=== PATIENT | female | born 1980 | race Caucasian/White ===

== ENCOUNTER 2020-04-05 07:52 | Outpatient (REF) | payer OTHER, SELFPAY ==
[2020-04-05 10:06] LABS: MANUAL DIFF FLAG NO
[2020-04-05 10:07] LABS: Basophils Percent Auto 0.4 % (0-2); Eosinophils Absolute Auto 0.2 X10*3/uL (0.0-0.4); Hematocrit 40.1 % (37-47); Hemoglobin 13.3 g/dl (12.0-16.0); Imm Gran Abs Auto 0.01 X10*3/uL (0.00-0.03); Imm Gran Pct Auto 0.2 % (0.0-0.4); Mean Corpuscular HGB Conc 33.2 g/dl (31.0-35.0); Mean Corpuscular Hemoglobin 31.8 pg (27.0-33.0); Mean Corpuscular Volume 95.9 fL (80-98); Mean Platelet Volume 11.4 fL (9.4-12.3); Monocytes Absolute Auto 0.4 X10*3/uL (0.1-1.2); Monocytes Percent Auto 7.4 % (2-11); Neutrophils Absolute Auto 2.4 X10*3/uL (2.0-8.3); Platelet Count 203 X10*3/uL (160-400); Red Blood Count 4.18 X10*6/uL (4.20-5.50); Red Cell Distribution Width 11.5 % (11.0-16.0)
[2020-04-05 11:03] LABS: Alanine Aminotransferase 14 U/L (0-31); Albumin Level 4.4 g/dL (3.5-5.0); Alkaline Phosphatase 67 U/L (39-117); Anion Gap 11 (12-20); Aspartate Amino Transferase 22 U/L (5-31); Bilirubin Total 0.4 mg/dL (0.0-1.0); Blood Urea Nitrogen 18 mg/dL (9-16); Calcium 8.8 mg/dL (8.4-10.2); Carbon Dioxide 27 mmol/L (22-29); Chloride 107 mmol/L (96-108); Estimated Glomerular Filt Rate > 60; Glucose Fasting 90 mg/dL (60-99); Potassium 4.2 mmol/l (3.3-5.1); Sodium 141 mmol/L (135-145); Total Protein 7.3 g/dL (6.5-8.0)
[2020-04-05 11:05] LABS: Thyroid Stimulating Hormone 2.53 uIU/mL (0.32-4.0)
[2020-04-05 11:36] LABS: Rheumatoid Factor < 15.0 IU/mL (<15.0)
[2020-04-05 11:41] LABS: Erythrocyte Sedimentation Rate 10 MM/HR (0-20)
[2020-04-06 08:33] LABS: Lyme Abs Screen <0.90 index
[2020-04-10 09:22] LABS: Anti Nuclear Antibody Screen POSITIVE
== END 2020-04-05 07:53 | disposition home or self-care (01) ==
LOC: HO.10HDL 07:52
PROVIDERS: PCP Nurse Practitioner Family; Visit Provider Nurse Practitioner Family
DX: M25.549 Pain in joints of unspecified hand (principal); Z00.00 Encounter for general adult medical examination without abnormal findings
CPT/HCPCS: 36415; 80053; 84443; 85025; 85652; 86038; 86039; 86431; 86618

== ENCOUNTER 2023-10-24 10:18 | Outpatient (AMB) | payer OTHER, SELFPAY ==
--- NOTE | 2023-10-24 11:35 | AM.OFFWIN_ITS ---
Intake Vital Signs 3 10/24/23 11:37 Height 5 ft 5 in Weight 161 lb 2 oz BMI 26.8 BP 106/84 Blood Pressure Location Lt brachial Position Sitting Respiration 12 Pulse 65 Pulse Source Pulse Oximeter Temp 98.4 F Temp Source Oral Pulse Oximetry (%) 99 Oxygen Delivery Method Room Air Intake Visit Reasons: abdominal pain Intake Note: Abdominal pain Patient Tobacco Use Status: Never used Tobacco Is last menstrual period known: No (On IUD) Patient : No Allergies butorphanol [From Stadol] Allergy (Mild, Verified 10/24/23 11:59) Nausea and Vomiting animal dander Allergy (Unknown, Verified 10/24/23 11:59) SWOLLEN EYES morphine [MORPHINE] Allergy (Unknown, Verified 10/24/23 11:59) NAUSEA & VOMITING, nausea and vomiting lactose [LACTOSE] Adverse Reaction (Intermediate, Verified 10/24/23 11:59) DIARRHEA Medication List - Last Reconciled 10/24/23 by Jessica Iraheta, [facility]- escitalopram oxalate 20 mg PO DAILY levothyroxine 25 mcg PO DAILY omeprazole 20 mg PO DAILY Do you need a note to return to daycare/school/sports/work: No HPI HPI Comments 2 History of Present Illness0 Details 43-year-old female here today with compl aints of abdominal pain that started on Friday after eating a grilled VG wrap at a restaurant. Shortly thereafter she developed diarrhea and intense abdominal pain located around her umbilicus. She used Lomotil with positive effect. However she continues to feel sensation of trapped gas sensation in her abdomen again around her belly button. She had nausea without vomiting on Friday. She has no lactose intolerance but does not feel her abdominal symptoms today are related to this. Does have IBS and stress however again does not feel this is related to that. She has not IUD therefore is unsure of her last. 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 Stool is yellow in color, nonbloody Denies fever, chills, vomiting, normal urination, bloody stools. Denies recent travel or sick exposures. This note is constructed using voice recognition software. While every effort has been made to ensure accuracy in transcription specialist, still errors may have been included Sometimes, these errors may affect the content or meaning of the given sentence . COUNTS INCLUDE 234 BEDS AT THE [facility] Social History Patient Tobacco Use Status: Never used Tobacco Physical Exam Vital Signs: Last Vital Signs Temp 98.4 F 10/24/23 11:37 Pulse 65 10/24/23 11:37 Resp 12 10/24/23 11:37 BP 106/84 10/24/23 11:37 Pulse Ox 99 10/24/23 11:37 Oxygen Delivery Method Room Air 10/24/23 11:37 BMI result Body Mass Index 26.8 GI Other: awake alert, NAD scleras nonicteric bilat MMM RRR LS CTAB No CVAT Abd soft, normoactive bowel sounds, no round tenderness or peritoneal signs Skin PWD Abdomen image: 2 1. tenderness w/ deep palpation,? hernia palpable, very small, reducible Assessment & Plan Assessment & Plan (1) Umbilical pain: Code(s): R10.33 - Periumbilical pain (2) Diarrhea: Code(s): R19.7 - Diarrhea, unspecified Qualifiers: Diarrhea type: unspecified type Qualified Code(s): R19.7 - Diarrhea, unspecified Plan: . Plan . Total time spent caring for the patient today was 35 minutes. This includes time spent before the visit reviewing the chart, time spent during the visit, and time spent after the visit on documentation Orders: Orders 2 US abdomen complete 10/24/23 R10.33 - Periumbilical pain, R19.7 - Diarrhea, unspecified Patient Instructions: The plan will be to proceed w/ US. No need for labs at this time, appears nontoxic. PCP Sendy Hector, appt 04/2024. Diet as tolerated, edu on reasons to seek addl care, otherwise will f/u once results of US are back. Coding Level of Care Code Est Pt Level 4 (69249) Diagnoses Umbilical pain R10.33 Diarrhea, unspecified type R19.7 Diarrhea type: unspecified type
[2023-10-24 11:37] VITALS: BP 106/84; PULSE 65; RESP 12; TEMP 36.9; O2SAT 99; BMI 26.8
== END 2023-10-24 12:12 | disposition home or self-care (01) ==
PROVIDERS: Visit Provider Nurse Practitioner Family
DX: R10.33 Periumbilical pain (principal); R19.7 Diarrhea, unspecified
CPT/HCPCS: 99214

== ENCOUNTER 2023-10-28 08:16 | Outpatient (REF) | payer OTHER, SELFPAY ==
--- NOTE | ~2023-10-28 | US_ITS ---
EXAMINATION: US ABDOMEN LIMITED CLINICAL INFORMATION: Periumbilical pain, question hernia. Tenderness with deep palpation, question hernia palpable, very small, reducible. COMPARISON: CT abdomen and pelvis 09/27/2015. TECHNIQUE: Real-time imaging of the area near umbilicus. FINDINGS: Targeted ultrasound examination of the periumbilical area over the site of tenderness shows normal intact subcutaneous tissue, rectus sheath. No ventral hernia is demonstrated. No focal lesion with abnormal echogenicity or abnormal fluid collection could be found. US/US abdomen limited IMPRESSION: No evidence of focal lesion could be seen in the periumbilical area. The tiny umbilical hernia containing mesenteric fat is visualized on CT scan of abdomen and pelvis on 09/27/2015 could not be demonstrated on ultrasound examination.
== END 2023-10-28 08:17 | disposition home or self-care (01) ==
LOC: HO.US 08:16
PROVIDERS: PCP Internal Medicine; Visit Provider Nurse Practitioner Family
DX: R10.33 Periumbilical pain (principal); R19.7 Diarrhea, unspecified
CPT/HCPCS: 76705

== ENCOUNTER 2023-11-05 10:25 | Outpatient (AMB) | payer OTHER, SELFPAY ==
--- NOTE | 2023-11-05 10:40 | MHC.PC.OV ---
Vital Signs 11/05/23 10:46 Height 5 ft 5 in Weight 161 lb BMI 26.8 BP 108/68 Blood Pressure Location Rt brachial Position Sitting Respiration 16 Pulse 71 Pulse Source Pulse Oximeter Temp 97.5 F Temp Source Oral Pulse Oximetry (%) 98 Oxygen Delivery Method Room Air Intake Visit Reasons: New patient f/u Intake Note: patient here for new patient visit. Designer/Writer Required: No Is last menstrual period known: Yes Last menstrual period: 11/03/23 Post menopausal: No Patient : No Allergies butorphanol [From Stadol] Allergy (Mild, Verified 11/05/23 10:42) Nausea and Vomiting animal dander Allergy (Unknown, Verified 11/05/23 10:42) SWOLLEN EYES morphine [MORPHINE] Allergy (Unknown, Verified 11/05/23 10:42) NAUSEA & VOMITING, nausea and vomiting lactose [LACTOSE] Adverse Reaction (Intermediate, Verified 11/05/23 10:42) DIARRHEA Tobacco use date assessed: 11/05/23 Dental Screening Dental Screen Date: 11/05/23 Did you have a dental visit in the last 12 months?: Yes Did you have a dental problem in the last 6 months where you did not have access to dental care?: No Was dental information given to patient?: Patient has dentist HPI HPI Comments History of Present Illness Details Very pleasant 43-year-old female here today for follow up of abdominal pain. Since last office visit she had an ultrasound of her abdomen performed. The results as below reviewed with her today. In regards to her physical presentation she reports that she is feeling much better. She is no longer having any diarrhea. Her periumbilical pain was resolved until she moved furniture the other day. She had pain initially but this resolved on its own. Other than that she denies any fever, chills, bloody stools, blood in urine, back pain, nausea vomiting. She has a initial gastroenterology appointment scheduled in November GI awake alert, NAD scleras nonicteric bilat MMM Abd soft, normoactive bowel sounds, no rebound tenderness or peritoneal signs Skin PWD Abdomen image: 1. tenderness w/ d eep palpation,? he rnia palpable, jacey y small, reducible Plan In 2015 it was noted that she does have a periumbilical hernia. Question if this is the cause of the pain that she has been experiencing. Given that she is feeling better and the ultrasound was reassuring, advised for her to follow up with Gastroenterology in November as scheduled. No need for surgical referral at this time. Advised to avoid daily activities that include the Valsalva maneuver, maintain normal bowel movements. Educated on reasons to seek additional care. Total time spent caring for the patient today was 30 minutes. This includes time spent before the visit reviewing the chart, time spent during the visit, and time spent after the visit on documentation This note is constructed using voice recognition software. While every effort has been made to ensure accuracy in trend investigator, still errors may have been included Sometimes, these errors may affect the content or meaning of the given sentence . 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 1. Little interest or pleasure in doing things: not at all 2. Feeling down, depressed, or hopeless: not at all 3. Trouble falling or staying asleep, or sleeping too much: not at all 4. Feeling tired or having little energy: several days 5. Poor appetite or overeating: not at all 6. Feeling bad about yourself - or that you are a failure or have let yourself or your family down: not at all 7. Trouble concentrating on things, such as reading the newspaper or watching television: not at all 8. Moving or speaking so slowly that other people could have noticed. Or the opposite - being so fidgety or restless that you have been moving around a lot more than usual: not at all 9. Thoughts that you would be better off or of hurting yourself in some way: not at all Total score: 1 00372 - PHQ-9 Billing: Yes Source: Developed by Drs. Alvaro Durand, Anai Cain, Adan Martinez and colleagues, with an educational earline from [employer]. Thrive Questionnaire Date Thrive assessed: 11/05/23 I am a: Patient Within the past 12 months, did the food you bought not last and you didn't have the money to get more?: Never true Within the past 12 months, did you worry whether your food would run out before you got money to buy more?: Never true Do you have trouble paying for medicines?: No Do you have trouble getting transportation to medical appointments?: No Do you have trouble paying your heating and electricity bill?: No Do you have trouble taking care of your child, family member or friend?: No Do you have trouble with day-to-day activities such as bathing, preparing meals, shopping, managing finances, etc.?: No Are you currently unemployed and looking for a job?: No Are you interested in more education?: No Please select the resources that you would like help with: None Currently or been in a relationship where the following occur: No concerns reported THRIVE Score: 0 AUDIT C Alcohol Use Questionnaire (AUDIT-C) 1. How often do you have a drink containing alcohol?: 2-3 times a week 2. How many drinks containing alcohol do you have on a typical day when you are drinking?: 1 or 2 3. How often do you have six or more drinks on one occasion?: Never Total Score: 3 Score Reviewed/Action Taken: Yes CURT-7 AMB Questionnaire CURT-7 Date CURT - 7 assessed: 11/05/23 Feeling nervous, anxious, or on edge: 0 = Not at all Not being able to stop or control worryin = Not at all Worrying too much about different things: 0 = Not at all Trouble relaxin = Not at all Being so restless that it is hard to sit still: 0 = Not at all Becoming easily annoyed or irritable: 0 = Not at all Feeling afraid as if something awful might happen: 0 = Not at all Total CURT-7 score (0-4 normal; 5-9 mild; 10-14 moderate; 15-21 severe): 0 Source: Developed by Drs. Alvaro Durand, Anai Cain, Adan Martinez and colleagues, with an educational earline from [employer]. CURT-7 Assessment Billing CURT-7 Assessment Tool: CURT-7 Assessment 03265 Physical exam (Primary Care) Vital Signs: Last Vital Signs Temp 97.5 F 11/05/23 10:46 Pulse 71 11/05/23 10:46 Resp 16 11/05/23 10:46 BP 108/68 11/05/23 10:46 Pulse Ox 98 11/05/23 10:46 Oxygen Delivery Method Room Air 11/05/23 10:46 BMI result Body Mass Index 26.8 Tobacco/Smoking Status: Tobacco use Status Tobacco use date assessed 11/05/23 11/05/23 10:44 Patient Tobacco Use Status Never used Tobacco 11/05/23 10:44 e-Cigarette/Vaping Use Never Used 11/05/23 10:44 PHQ-9: PHQ-9 Score PHQ-9: Total score 1 11/05/23 10:53 Thrive Assessment: Date of Thrive Assessment Date Thrive assessed 11/05/23 11/05/23 10:53 Currently or been in a relationship where the following occur: No concerns reported Results Reviewed Results Reviewed: [place] [address] Ultrasound Report Signed Patient: Vera Hazel MR#: [id number] : 1980 acct:[id number] Age/Sex: 43 / F ADM Date: 10/28/23 Loc: HO.US Attending Dr: Jessica CRISOSTOMO Ordering Physician: Jessica Iraheta Date of Service: 10/28/23 Procedure(s): US abdomen limited Accession Number(s): [id number] cc: Jessica Iraheta; Minerva Gilmore MD~ EXAMINATION: US ABDOMEN LIMITED CLINICAL INFORMATION: Periumbilical pain, question hernia. Tenderness with deep palpation, question hernia palpable, very small, reducible. COMPARISON: CT abdomen and pelvis 09/27/2015. TECHNIQUE: Real-time imaging of the area near umbilicus. FINDINGS: Targeted ultrasound examination of the periumbilical area over the site of tenderness shows normal intact subcutaneous tissue, rectus sheath. No ventral hernia is demonstrated. No focal lesion with abnormal echogenicity or abnormal fluid collection could be found. US/US abdomen limited IMPRESSION: No evidence of focal lesion could be seen in the periumbilical area. The tiny umbilical hernia containing mesenteric fat is visualized on CT scan of abdomen and pelvis on 09/27/2015 could not be demonstrated on ultrasound examination. Dictated By: Sarah Mariscal Signed By: <Electronically signed by Sarah Mariscal in OV> 11/05/23826 DD/ TD/TT: Land Clearer: Assessment and Plan Assessment & Plan (1) Umbilical pain: Code(s): R10.33 - Periumbilical pain (2) Diarrhea: Code(s): R19.7 - Diarrhea, unspecified Qualifiers: Diarrhea type: unspecified type Qualified Code(s): R19.7 - Diarrhea, unspecified Coding Level of Care Code Est Pt Level 4 (47306) Diagnoses Umbilical pain R10.33 Diarrhea, unspecified type R19.7 Diarrhea type: unspecified type Additional Codes CURT-7 Assessment Billing - CURT-7 Assessment Tool: CURT-7 Assessment 80526 ([id number])
[2023-11-05 10:46] VITALS: BP 108/68; PULSE 71; RESP 16; TEMP 36.4; O2SAT 98; BMI 26.8
== END 2023-11-05 11:10 | disposition home or self-care (01) ==
PROVIDERS: PCP Nurse Practitioner Family; Visit Provider Nurse Practitioner Family
DX: R10.33 Periumbilical pain (principal); R19.7 Diarrhea, unspecified
CPT/HCPCS: 99214

== ENCOUNTER 2024-02-13 06:06 | Outpatient (REF) | payer OTHER, SELFPAY ==
[2024-02-13 07:16] LABS: Hematocrit 38.1 % (37.0-47.0); Hemoglobin 12.9 g/dl (12.0-16.0); Mean Corpuscular HGB Conc 33.9 g/dl (31.0-35.0); Mean Corpuscular Volume 91.6 fL (80.0-98.0); Mean Platelet Volume 10.8 fL (9.4-12.3); Platelet Count 165 X10*3/uL (160-400); Red Blood Count 4.16 X10*6/uL (4.20-5.50); Red Cell Distribution Width 11.8 % (11.0-16.0); White Blood Count 3.8 X10*3/uL (4.8-10.8)
[2024-02-13 07:25] LABS: Estimated Average Glucose 103 mg/dL; Hemoglobin A1C 113.4599 umol/L; Hemoglobin A1c % 5.2 % (<6.0)
[2024-02-13 07:51] LABS: Alanine Aminotransferase 19 U/L (0-31); Albumin Level 4.2 g/dL (3.5-5.0); Anion Gap 13 (12-20); Aspartate Amino Transferase 28 U/L (5-31); Bilirubin Total 0.3 mg/dL (0.0-1.0); Blood Urea Nitrogen 17 mg/dL (9-16); Calcium 8.6 mg/dL (8.4-10.2); Carbon Dioxide 24 mmol/L (22-29); Chloride 110 mmol/L (96-108); Cholesterol 182 mg/dL (<200); Estimated Glomerular Filt Rate > 60; Glucose Fasting 82 mg/dL (60-99); HDL Cholesterol 90 mg/dL (>40); Iron 63 mcg/dL (30-160); LDL Cholesterol Calculated 82 mg/dL (<100); Percent Iron Saturation 29 % (15-50); Potassium 4.2 mmol/L (3.3-5.1); Sodium 143 mmol/L (135-145); Total Iron Binding Capacity 218 mcg/dL (228-428); Total Protein 6.9 g/dL (6.5-8.0); Triglycerides 50 mg/dL (<150); Unsaturated Iron Binding 155 ug/dL
[2024-02-13 07:52] LABS: Creatinine Urine 137.99 mg/dL; Microalbumin Urine < 5.0 mg/L
[2024-02-13 08:04] LABS: Alkaline Phosphatase 55 U/L (39-117)
[2024-02-13 08:14] LABS: TSH reflex Free T4 3.45 uIU/mL (0.32-4.0)
[2024-02-13 08:29] LABS: Folate 11.7 ng/mL (> or = 4.0); Vitamin B12 532 pg/mL (200-900)
[2024-02-18 16:39] LABS: VITAMIN D (1,25 OH) D3 34 pg/mL; Vit D (1,25-Dihydroxy) Total 34 pg/mL (18-72); Vitamin D (1,25 OH) D2 <8 pg/mL
== END 2024-02-13 06:07 | disposition home or self-care (01) ==
LOC: HO.LAB 06:06
PROVIDERS: PCP Nurse Practitioner Family; Visit Provider Nurse Practitioner Family
DX: Z00.00 Encounter for general adult medical examination without abnormal findings (principal); Z13.1 Encounter for screening for diabetes mellitus
CPT/HCPCS: 36415; 80053; 80061; 82570; 82607; 82652; 82746; 83036; 83540; 84443; 85027

== ENCOUNTER 2024-02-20 07:48 | Outpatient (AMB) | payer OTHER, SELFPAY ==
--- NOTE | 2024-02-20 08:01 | MHC.PC.OV ---
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: No Allergies butorphanol [From Stadol] Allergy (Mild, Verified 02/20/24 08:28) Nausea and Vomiting animal dander Allergy (Unknown, Verified 02/20/24 08:28) SWOLLEN EYES morphine [MORPHINE] Allergy (Unknown, Verified 02/20/24 08:28) NAUSEA & VOMITING, nausea and vomiting lactose [LACTOSE] Adverse Reaction (Intermediate, Verified 02/20/24 08:28) DIARRHEA Medication List - Last Reconciled 02/20/24 by Jessica Iraheta, [facility]- escitalopram oxalate 20 mg PO DAILY fluticasone propionate 50 mcg/actuation 1 spray intranasal BID levothyroxine 25 mcg PO DAILY omeprazole 20 mg PO DAILY Tobacco use date assessed: 11/05/23 Dental Screening Dental Screen Date: 02/20/24 Did you have a dental visit in the last 12 months?: Yes Did you have a dental problem in the last 6 months where you did not have access to dental care?: No Was dental information given to patient?: Patient has dentist HPI HPI Comments History of Present Illness Details 44-year-old female with IBS, GERD, hypothyroidism, generalized anxiety disorder, Family history of colon cancer (maternal uncle age 30), history of gestational hypertension, migraine headaches, seasonal allergies, family hx of breast ca (maternal aunt) Status post , ruptured ovarian cyst x2, release of trigger finger Social: 2 sons Jarret and NORAM, 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 Health Maintenance: Mammo August 2023, first one, At [facility], call back required, WNL. PAP UTD outside provider, [facility] Tdap 2020, Flu 2023 Colon x 2 @ [place], Genetic testing complete, negative for high risk CA despite family history. 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 Exposed to son who has PNA. She developed a cough and started Zpak. Otherwise she feels well. Optho Summer 2023, wears glasses and contacts Skin - not active w/ Derm. Has a large hyperpigmented area that starts in R axilla and extends to back stopping at spine, present since around age 8. Would like Derm referral Mood stable on current med, except recent election results has made her feel sad. She is able to cope. Just tearful. Reviewed w/ her: Labs from 02/13/2024 show WBC 3.8, RBC 4.16 otherwise normal CBC, normal electrolytes, normal renal function, hemoglobin A1c is 5.2%, mild low iron binding capacity at 218 otherwise normal iron profile, normal LFTs, normal lipid profile, TSH normal, urine microalbumin creatinine ratio normal, B12 folate normal vitamin-D also normal Plan: Eat Iron rich foods. No Iron recommended given GI issues. Cont all meds as prescribed Cont care w/ care team Mammo ordered at [facility] Let me know if you need any help/support w/ mood RTO 6 months with labs 1 week before, fu thyroid/CURT, sooner PRN PFSH Medical History (Updated 02/20/24 @ 15:07 by Jessica Iraheta [facility]) Headache Thyroid disease Surgical History (Updated 11/05/23 @ 10:55 by Linh Hollins MA) [place]onet teeth removed Family History (Updated 11/05/23 @ 10:58 by Linh Hollins MA) Sister Asthma Maternal Grandmother Diabetes Thyroid disorder Mother Thyroid disorder Father Prostate cancer Social History Housing: House Patient Tobacco Use Status: Never used Tobacco e-Cigarette/Vaping Use: Never Used Second Hand Smoke Exposure: No service: No Current occupational status: employed 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 1. Little interest or pleasure in doing things: not at all 2. Feeling down, depressed, or hopeless: several days 3. Trouble falling or staying asleep, or sleeping too much: not at all 4. Feeling tired or having little energy: not at all 5. Poor appetite or overeating: not at all 6. Feeling bad about yourself - or that you are a failure or have let yourself or your family down: not at all 7. Trouble concentrating on things, such as reading the newspaper or watching television: not at all 8. Moving or speaking so slowly that other people could have noticed. Or the opposite - being so fidgety or restless that you have been moving around a lot more than usual: not at all 9. Thoughts that you would be better off or of hurting yourself in some way: not at all Total score: 1 Depression Screening Interpretation: Negative Depression Screening Done: Yes 45050 - PHQ-9 Billing: Yes Source: Developed by Drs. Alvaro Durand, Anai Cain, Adan Martinez and colleagues, with an educational earline from [employer]. Thrive Questionnaire Date Thrive assessed: 02/20/24 I am a: Patient What is your living situation today?: I have a steady place to live Within the past 12 months, did the food you bought not last and you didn't have the money to get more?: Never true Within the past 12 months, did you worry whether your food would run out before you got money to buy more?: Never true Do you have trouble paying for medicines?: No Do you have trouble getting transportation to medical appointments?: No Do you have trouble paying your heating and electricity bill?: No Do you have trouble taking care of your child, family member or friend?: No Do you have trouble with day-to-day activities such as bathing, preparing meals, shopping, managing finances, etc.?: No Are you currently unemployed and looking for a job?: No Are you interested in more education?: No Please select the resources that you would like help with: None Currently or been in a relationship where the following occur: No concerns reported THRIVE Score: 0 AUDIT C Alcohol Use Questionnaire (AUDIT-C) 1. How often do you have a drink containing alcohol?: 2-3 times a week 2. How many drinks containing alcohol do you have on a typical day when you are drinking?: 1 or 2 3. How often do you have six or more drinks on one occasion?: Never Total Score: 3 Score Reviewed/Action Taken: Yes CURT-7 AMB Questionnaire CURT-7 Date CURT - 7 assessed: 02/20/24 Feeling nervous, anxious, or on edge: 1 = Several days Not being able to stop or control worryin = Not at all Worrying too much about different things: 1 = Several days Trouble relaxin = Not at all Being so restless that it is hard to sit still: 0 = Not at all Becoming easily annoyed or irritable: 0 = Not at all Feeling afraid as if something awful might happen: 0 = Not at all Total CURT-7 score (0-4 normal; 5-9 mild; 10-14 moderate; 15-21 severe): 2 Source: Developed by Drs. Alvaro Durand, Anai Cain, Adan Martinez and colleagues, with an educational earline from [employer]. CURT-7 Assessment Billing CURT-7 Assessment Tool: CURT-7 Assessment 83478 Review of Systems Const Details: Constitutional: Denies fever. Skin: Denies rash. Eye: Denies eye pain. ENMT: Denies sore throat and nasal congestion. Respiratory: Denies shortness of breath and cough. Gastrointestinal: Denies nausea, vomiting. Cardiovascular: Denies chest pain and syncope. Genitourinary: Denies dysuria. Musculoskeletal: Denies back pain and extremity pain. Neurologic: Denies headaches, confusion, and weakness. Psychiatric: Denies suicidal thoughts and substance abuse. Allergy/ Immunologic: Denies impaired immunity. Physical exam (Primary Care) Vital Signs: Last Vital Signs Pulse 71 02/20/24 08:10 Resp 12 02/20/24 08:10 BP 92/56 L 02/20/24 08:10 Pulse Ox 99 02/20/24 08:10 Oxygen Delivery Method Room Air 02/20/24 08:10 BMI result Body Mass Index 27.5 Tobacco/Smoking Status: Tobacco use Status Tobacco use date assessed 11/05/23 02/20/24 08:03 Patient Tobacco Use Status Never used Tobacco 02/20/24 08:03 e-Cigarette/Vaping Use Never Used 02/20/24 08:03 PHQ-9: PHQ-9 Score PHQ-9: Total score 1 02/20/24 08:35 Depression Screening Interpretation: Negative Thrive Assessment: Date of Thrive Assessment Date Thrive assessed 02/20/24 02/20/24 08:07 Currently or been in a relationship where the following occur: No concerns reported Const Other: General: Well developed, well nourished, in no acute distress. Appears stated age. Head: Normocephalic, atraumatic. Eyes: Pupils are equal, round and reactive to light and accommodation. Conjunctivae are clear. Vision grossly normal. Ears: TMs clear AU, EACS WNL Nose: Patent, without discharge. Mouth: There are no ulcers or lesions noted. No inflammation, no post nasal drip, no plaques nor exudates. Neck: Supple, no adenopathy or thyromegaly. Lungs: Clear to auscultation bilaterally. No rales, rhonchi or wheeze noted. Good air flow in all mckinney. Heart: Regular rate and rhythm. No murmurs, click, rubs or gallops are noted. Abdomen: Bowel sounds present in all quadrants. The abdomen is soft, nontender, with no masses or organomegaly noted. No hernias are noted. Musculoskeletal: Joints are nontender, without swelling, redness, or effusions. Range of motion is observed to be normal. Pulses: Peripheral pulses are equal and palpable bilaterally. Extremities: No clubbing, cyanosis nor edema is noted. Neurologic: Gait and station normal. Cranial Nerves 2-12 intact. Motor strength grossly symmetrical and intact. No sensory loss. Balance normal. Skin: No rashes, ulcers, or lesions noted. Turgor is good. Skin color is good. Hair and nails are without abnormalities. Psych: Normal eye contact, affect and mood appropriate, and normal interactions. Patient is alert and appropriate to context. Coding Level of Care Code Est Pt Prev Care 40-64y(37308) Diagnoses Encounter for general adult medical examination without abnormal findings Z00.00 Diarrhea, unspecified type R19.7 Diarrhea type: unspecified type Family hx of colon cancer Z80.0 Irritable bowel syndrome with diarrhea K58.0 Irritable bowel syndrome type: with diarrhea Hx of breast cancer Z85.3 Melasma L81.1 CURT (generalized anxiety disorder) F41.1 Acquired hypothyroidism E03.9 Hypothyroidism type: acquired Gastroesophageal reflux disease without esophagitis K21.9 Esophagitis presence: without esophagitis Migraine without aura and without status migrainosus, not intractable G43.009 Status migrainosus presence: without status migrainosus Intractability: not intractable Seasonal allergies J30.2 History of gestational diabetes Z86.32 Additional Codes CURT-7 Assessment Billing - CURT-7 Assessment Tool: CURT-7 Assessment 59912 ([id number]) PHQ-9 - 71052 - PHQ-9 Billing: Yes ([id number]) Assessment & Plan Assessment & Plan (1) Encounter for general adult medical examination without abnormal findings: Code(s): Z00.00 - Encounter for general adult medical examination without abnormal findings Plan: . (2) Diarrhea: Code(s): R19.7 - Diarrhea, unspecified Category: Medical Qualifiers: Diarrhea type: unspecified type Qualified Code(s): R19.7 - Diarrhea, unspecified Plan: . (3) Family hx of colon cancer: Comment: maternal uncle age 30 Code(s): Z80.0 - Family history of malignant neoplasm of digestive organs Category: Medical Plan: . (4) IBS (irritable bowel syndrome): Code(s): K58.9 - Irritable bowel syndrome, unspecified Category: Medical Qualifiers: Irritable bowel syndrome type: with diarrhea Qualified Code(s): K58.0 - Irritable bowel syndrome with diarrhea Plan: . (5) Hx of breast cancer: Comment: maternal aunt Code(s): Z85.3 - Personal history of malignant neoplasm of breast Category: Medical Plan: . (6) Melasma: Code(s): L81.1 - Chloasma Category: Medical Plan: . (7) CURT (generalized anxiety disorder): Code(s): F41.1 - Generalized anxiety disorder Category: Medical Plan: . (8) Hypothyroid: Code(s): E03.9 - Hypothyroidism, unspecified Category: Medical Qualifiers: Hypothyroidism type: acquired Qualified Code(s): E03.9 - Hypothyroidism, unspecified Plan: . (9) GERD (gastroesophageal reflux disease): Code(s): K21.9 - Gastro-esophageal reflux disease without esophagitis Category: Medical Qualifiers: Esophagitis presence: without esophagitis Qualified Code(s): K21.9 - Gastro-esophageal reflux disease without esophagitis Plan: . (10) Migraine headache without aura: Code(s): G43.009 - Migraine without aura, not intractable, without status migrainosus Category: Medical Qualifiers: Status migrainosus presence: without status migrainosus Intractability: not intractable Qualified Code(s): G43.009 - Migraine without aura, not intractable, without status migrainosus Plan: . (11) Seasonal allergies: Code(s): J30.2 - Other seasonal allergic rhinitis Category: Medical Plan: . (12) History of gestational diabetes: Code(s): Z86.32 - Personal history of gestational diabetes Category: Medical Plan: . Plan . Orders: Orders TSH reflex Free T4 07/13/24 E03.9 - Hypothyroidism, unspecified MM tomosynthesis screening BI Today Z12.31 - Encounter for screening mammogram for malignant neoplasm of breast Referrals Gastroenterology Referral K58.9 - Irritable bowel syndrome, unspecified, R10.33 - Periumbilical pain, R19.7 - Diarrhea, unspecified, Z80.0 - Family history of malignant neoplasm of digestive organs Dermatology Referral L81.1 - Chloasma Medications: New levothyroxine 25 mcg PO DAILY 90 tabs 2RF escitalopram oxalate 20 mg PO DAILY 90 tabs 2RF Patient Instructions: Health screenings for women You should visit your health care provider from time to time, even if you are healthy. The purpose of these visits is to: Screen for medical issues Assess your risk for future medical problems Encourage a healthy lifestyle Update vaccinations and other preventive care services Help you get to know your provider in case of an illness Information Even if you feel fine, you should still see your provider for regular checkups. These visits can help you avoid problems in the future. For example, the only way to find out if you have high blood pressure is to have it checked regularly. High blood sugar and high cholesterol levels also may not have any symptoms in the early stages. A simple blood test can check for these conditions. There are specific times when you should see your provider or receive specific health screenings. The [place] Preventive Services Task Force publishes a list of recommended screenings. Below are screening guidelines for women ages 18 to 39. BLOOD PRESSURE SCREENING Your blood pressure should be checked at least once every 3 to 5 years if: Your blood pressure is in the normal range (top number less than 120 mm Hg and bottom number less than 80 mm Hg) You don't have risk factors for high blood pressure Ask your provider if you need your blood pressure checked more often if: The top number is 120 to 129 mm Hg or the bottom number is 70 to 79 mm Hg You have diabetes, heart disease, kidney problems, are overweight, or have certain other health conditions You have a first-degree relative with high blood pressure You are Black You had high blood pressure during a If the top number is 130 mm Hg or greater or the bottom number is 80 mm Hg or greater, this is considered stage 1 hypertension. Schedule an appointment with your provider to learn how you can reduce your blood pressure. Watch for blood pressure screenings in your area. Ask your provider if you can stop in to have your blood pressure checked. BREAST CANCER SCREENING Experts do not agree about the benefits of breast self-exams in finding breast cancer or saving lives. Talk to your provider about what is best for you. A screening mammogram is not recommended for most women under age 40. Your provider may discuss and recommend mammograms, MRI scans, or ultrasounds if you have an increased risk for breast cancer, such as: A mother or sister who had breast cancer at a young age (most often starting screening earlier than the age the close relative was diagnosed) You carry a high-risk genetic marker CERVICAL CANCER SCREENING Cervical cancer screening should start at age 21 years unless your provider advises otherwise. After the first test: Women ages 21 through 29 should have a Pap test every 3 years. Exoprts do not agree on whether HPV testing is recommended for this age group. Women ages 30 through 65 should be screened with either a Pap test every 3 years or the HPV test every 5 years or both tests every 5 years (called cotesting ). Women who have been treated for precancer (cervical dysplasia) should continue to have Pap tests for 20 years after treatment or until age 65, whichever is longer. If you have had your uterus and cervix removed (total hysterectomy), and you have not been diagnosed with cervical cancer or precancer (high grade cervical neoplasia), you do not need cervical cancer screening. CHOLESTEROL SCREENING Cholesterol screening should begin at: Age 45 for women with no known risk factors for coronary heart disease Age 20 for women with known risk factors for coronary heart disease Repeat cholesterol screening should take place: Every 5 years for women with normal cholesterol levels More often if changes occur in lifestyle (including weight gain and diet) More often if you have diabetes, heart disease, kidney problems, or certain other conditions DIABETES SCREENING You should be screened for diabetes starting at age 35 and then repeated every 3 years if you have no risk factors for diabetes. Screening may need to start earlier and be repeated more often if you have other risk factors for diabetes, such as: You have a first degree relative with diabetes. You are overweight or have obesity. You have high blood pressure, prediabetes, or a history of heart disease. Screening for diabetes should be done if you are planning to become and you are overweight and have other risk factors such as high blood pressure. DENTAL EXAM Go to the dentist once or twice every year for an exam and cleaning. Your dentist will evaluate if you need more frequent visits. EYE EXAM Have an eye exam every 5 to 10 years before age 40. If you have vision problems, have an eye exam every 2 years or more often if recommended by your provider. You should have an eye exam that includes an examination of your retina (back of your eye) at least every year if you have diabetes. IMMUNIZATIONS Commonly needed vaccines include: Flu shot: get one every year. COVID-19 vaccine: ask your provider what is best for you. Tetanus-diphtheria and acellular pertussis (Tdap) vaccine: have one at or after age 19 as one of your tetanus-diphtheria vaccines if you did not receive it as an adolescent. Tetanus-diphtheria: have a booster (or Tdap) every 10 years. Varicella vaccine: receive 2 doses if you never had chickenpox or the varicella vaccine. Hepatitis B vaccine: receive 2, 3, or 4 doses, depending on your exact circumstances. Measles, mumps, and rubella (MMR) vaccine: receive 1 to 2 doses if you are not already immune to MMR. Your provider can tell you if you are immune. Ask your provider about the human papillomavirus (HPV) vaccine if: You have not received the HPV vaccine in the past You have not completed the full vaccine series (you should catch up on this shot) Ask your provider if you should receive other immunizations if you have certain health problems that increase your risk for some diseases such as pneumonia. INFECTIOUS DISEASE SCREENING Women who are sexually active should be screened for chlamydia and gonorrhea up until age 25. Women 25 years and older should be screened for chlamydia and gonorrhea if at high risk. Screening for hepatitis C: All adults ages 18 to 79 should get a one-time test for hepatitis C. people should be screened at every . Screening for human immunodeficiency virus (HIV): All people ages 15 to 65 should get a one-time test for HIV. Depending on your lifestyle and medical history, you may also need to be screened for infections such as syphilis and HIV, as well as other infections. PHYSICAL EXAM All adults should visit their provider from time to time, even if they are healthy. The purpose of these visits is to: Screen for disease Assess your risk of future medical problems Encourage a healthy lifestyle Update your vaccinations and other preventive care services Maintain a relationship with a provider in case of an illness Your height, weight, and BMI should be checked at every exam. During your exam, your provider may ask you about: Depression and anxiety Diet and exercise Alcohol and tobacco use Safety issues, such as using seat belts, smoke detectors, and intimate partner violence Your medicines and risk for interactions SKIN SELF-EXAM Your provider may check your skin for signs of skin cancer, especially if you're at high risk, such as if you: Have had skin cancer before Have close relatives with skin cancer Have a weakened immune system OTHER SCREENING Talk with your provider about colon cancer screening if you have a strong family history of colon cancer or polyps, or if you have had inflammatory bowel disease or polyps yourself. Routine bone density screening of women under 40 is not recommended.
[2024-02-20 08:10] VITALS: BP 92/56; PULSE 71; RESP 12; O2SAT 99; BMI 27.5
== END 2024-02-20 08:46 | disposition home or self-care (01) ==
LOC: HO.HMCFM 07:49
PROVIDERS: PCP Nurse Practitioner Family; Visit Provider Nurse Practitioner Family
DX: Z00.00 Encounter for general adult medical examination without abnormal findings (principal); R19.7 Diarrhea, unspecified; Z80.0 Family history of malignant neoplasm of digestive organs; K58.0 Irritable bowel syndrome with diarrhea; Z85.3 Personal history of malignant neoplasm of breast; L81.1 Chloasma; F41.1 Generalized anxiety disorder; E03.9 Hypothyroidism, unspecified; K21.9 Gastro-esophageal reflux disease without esophagitis; G43.009 Migraine without aura, not intractable, without status migrainosus; J30.2 Other seasonal allergic rhinitis; Z86.32 Personal history of gestational diabetes

== ENCOUNTER → 2024-02-20 07:48 | Outpatient (BNVA) | payer OTHER, SELFPAY | PROVIDERS: PCP Nurse Practitioner Family; Visit Provider Nurse Practitioner Family | DX: Z00.00 Encounter for general adult medical examination without abnormal findings (principal); K58.0 Irritable bowel syndrome with diarrhea; L81.1 Chloasma; F41.1 Generalized anxiety disorder; E03.9 Hypothyroidism, unspecified; K21.9 Gastro-esophageal reflux disease without esophagitis; G43.009 Migraine without aura, not intractable, without status migrainosus; J30.2 Other seasonal allergic rhinitis; Z85.3 Personal history of malignant neoplasm of breast; Z86.32 Personal history of gestational diabetes; Z80.0 Family history of malignant neoplasm of digestive organs | CPT/HCPCS: 96127 ==

== ENCOUNTER 2024-03-02 08:23 | Outpatient (AMB) | payer OTHER, SELFPAY ==
--- NOTE | 2024-03-02 08:28 | A.OFFPC_ITS ---
Vital Signs 03/02/24 08:30 03/02/24 08:57 Height 5 ft 5 in Weight 163 lb 8 oz BMI 27.2 BP 106/57 L Blood Pressure Location Rt brachial Position Sitting Respiration 13 Pulse 75 Pulse Source Pulse Oximeter Pulse Oximetry (%) 96 97 Oxygen Delivery Method Room Air Room Air Intake Visit Reasons: Shoulder pain Intake Note: Patient complaining of shoulder pain since last spring. 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 Required: No Allergies butorphanol [From Stadol] Allergy (Mild, Verified 03/02/24 08:43) Nausea and Vomiting animal dander Allergy (Unknown, Verified 03/02/24 08:43) SWOLLEN EYES morphine [MORPHINE] Allergy (Unknown, Verified 03/02/24 08:43) NAUSEA & VOMITING, nausea and vomiting lactose [LACTOSE] Adverse Reaction (Intermediate, Verified 03/02/24 08:43) DIARRHEA Medication List - Last Reconciled 03/02/24 by HARDEEP JasonP- escitalopram oxalate 20 mg PO DAILY fluticasone propionate 50 mcg/actuation 1 spray intranasal BID levothyroxine 25 mcg PO DAILY omeprazole 20 mg PO DAILY Tobacco use date assessed: 11/05/23 Dental Screening Dental Screen Date: 02/20/24 HPI HPI Comments History of Present Illness Details Chief Complaint The patient presents with right shoulder pain. History of Present Illness The patient is a 44-year-old female presenting with right shoulder pain. The discomfort began in June and has been intermittent, with episodes severe enough to impair her ability to move the shoulder. The pain is described as deep, situated within the shoulder, and not resembling muscular pain when most severe. She reports an inability to lift the arm without causing pain. The patient is right-hand dominant and has no history of recent injuries to the shoulder, although she did sustain a broken right clavicle at age 5. She observes that the pain worsens with activities involving shoulder exercises with weights and carrying her 33-pound child, which she does frequently. Sleeping on her right side also exacerbates the pain. Self-treatment included the application of lidocaine, which offers partial relief, and the occasional use of seyt-fab-rxawnbr medications like Tylenol and ibuprofen, which provide minimal help. She denies any weakness, loss of function, rash, bruising, or redness in the joint. 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 - She engages in exercise, primarily bod yweight exercises, and modifies activities as needed to accommodate shoulder pain. Review of Systems - Musculoskeletal: Reports intermittent right shoulder discomfort impacting range of motion and function. Physical Exam - Cardiovascular- Strong regular pulse i n the right arm. - Musculoskeletal- - Right shoulder: No pain on cervical spine, clavicle, or scapula palpation. No edema, ecchymosis or redness. - Range of Motion- pain on pulling activ ity; full range with some discomfort noted on overhead movements. Plan - Right Shoulder Pain: Initiate with guy gnostic imaging through a right shoulder X-ray to assess for any bony abnormalities or fluid suggestive of conditions such as bursitis. Discussed referral to orthopedics for potential further evaluation, including MRI, if needed, to investigate rotator cuff or tendon involvement. The patient is advised to continue modified activity to avoid exac erbating pain, utilizing lmod-dja-rggyavc medications for symptomatic relief as required. Patient was informed and verbally consented to the use of an ambient scribe for clinic note documentation during this visit. Discussion Notes I discussed with the patient the presentation and management of her right shoulder pain. We agreed to start with a shoulder X-ray to evaluate for any bony abnormalities or shoulder bursitis. I explained that X-rays are excellent for detecting bone-related changes but limited for assessing soft tissue issues like rotator cuff damage. Therefore, an orthopedic referral was recommended for further evaluation, including considering an MRI if necessary. The possibility of surgical intervention would depend on these findings. The patient was advised to maintain an active lifestyle but avoid activities exacerbating the shoulder pain. The efficacy and appropriate use of lidocaine, Tylenol, and ibuprofen were discussed, with guidance to avoid their routine use. The patient was advised to follow up based on imaging results, which would be promptly communicated through the patient portal or a phone call in case of urgent findings. Patient Instructions - Proceed with the right shoulder X-ray at either [facility] or [facility]. - Follow up with orthopedics at [facility] for further evaluation. - Modify activities and exercises that e xacerbate shoulder pain; focus on maintaining general activity. - Use smxk-mfp-uqjpotx medications like Tylenol or ibuprofen and lidocaine for symptomatic relief as required. - Await further instructions based on im aging results, which will be communicated through the patient portal. Total time spent caring for the patient today was 30 minutes. This includes time spent before the visit reviewing the chart, time spent during the visit, and time spent after the visit on documentation [facility] Medical History (Updated 03/02/24 @ 08:57 by Jessica Iraheta [facility]) Headache Thyroid disease Surgical History (Updated 11/05/23 @ 10:55 by Linh Hollins MA) [place] teeth removed Family History (Updated 11/05/23 @ 10:58 by Linh Hollins MA) Sister Asthma Maternal Grandmother Diabetes Thyroid disorder Mother Thyroid disorder Father Prostate cancer Social History Housing: House Patient Tobacco Use Status: Never used Tobacco e-Cigarette/Vaping Use: Never Used Second Hand Smoke Exposure: No service: No Current occupational status: employed 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 41868 - PHQ-9 Billing: Patient declined-do not bill Source: Developed by Drs. Alvaro Durand, Anai Cain, Adan Martinez and colleagues, with an educational earline from [employer]. Thrive Questionnaire Date Thrive assessed: 03/02/24 I am a: Patient What is your living situation today?: I have a steady place to live Within the past 12 months, did the food you bought not last and you didn't have the money to get more?: Never true Within the past 12 months, did you worry whether your food would run out before you got money to buy more?: Never true Do you have trouble paying for medicines?: No Do you have trouble getting transportation to medical appointments?: No Do you have trouble paying your heating and electricity bill?: No Do you have trouble taking care of your child, family member or friend?: No Do you have trouble with day-to-day activities such as bathing, preparing meals, shopping, managing finances, etc.?: No Are you currently unemployed and looking for a job?: No Are you interested in more education?: No Please select the resources that you would like help with: None Currently or been in a relationship where the following occur: No concerns reported THRIVE Score: 0 CURT-7 AMB Questionnaire CURT-7 Date CURT - 7 assessed: 02/20/24 Source: Developed by Drs. Alvaro Durand, Anai Cain, Adan Martinez and colleagues, with an educational earline from [employer]. Physical exam (Primary Care) Vital Signs: Last Vital Signs Pulse 75 03/02/24 08:30 Resp 13 03/02/24 08:30 BP 106/57 L 03/02/24 08:30 Pulse Ox 97 03/02/24 08:57 Oxygen Delivery Method Room Air 03/02/24 08:57 BMI result Body Mass Index 27.2 Tobacco/Smoking Status: Tobacco use Status Tobacco use date assessed 11/05/23 03/02/24 08:35 Patient Tobacco Use Status Never used Tobacco 03/02/24 08:35 e-Cigarette/Vaping Use Never Used 03/02/24 08:35 Thrive Assessment: Date of Thrive Assessment Date Thrive assessed 03/02/24 03/02/24 08:35 Currently or been in a relationship where the following occur: No concerns reported Coding Level of Care Code Est Pt Level 4 (52749) Complex EM visit Add On G2211 Diagnoses Acute pain of right shoulder M25.511 Chronicity: acute Assessment & Plan Assessment & Plan (1) Right shoulder pain: Code(s): M25.511 - Pain in right shoulder Category: Medical Qualifiers: Chronicity: acute Qualified Code(s): M25.511 - Pain in right shoulder Plan: . Plan . Orders: Orders XR shoulder RT min 2V Today M25.511 - Pain in right shoulder Referrals Orthopedics Referral M25.511 - Pain in right shoulder
[2024-03-02 08:30] VITALS: BP 106/57; PULSE 75; RESP 13; O2SAT 96; BMI 27.2
[2024-03-02 08:57] VITALS: O2SAT 97
== END 2024-03-02 10:03 | disposition home or self-care (01) ==
PROVIDERS: PCP Nurse Practitioner Family; Visit Provider Nurse Practitioner Family
DX: M25.511 Pain in right shoulder (principal)

== ENCOUNTER → 2024-03-02 08:23 | Outpatient (BNVA) | payer OTHER, SELFPAY | PROVIDERS: PCP Nurse Practitioner Family; Visit Provider Nurse Practitioner Family ==

== ENCOUNTER 2024-03-09 14:23 | Outpatient (REF) | payer OTHER, SELFPAY ==
--- NOTE | ~2024-03-09 | XR_ITS ---
EXAMINATION: XR SHOULDER, RIGHT CLINICAL INFORMATION: Pain in right shoulder COMPARISON: Pain in right shoulder TECHNIQUE: Four views of the right shoulder. FINDINGS: The bones and soft tissues are normal. No fracture. Glenohumeral and acromioclavicular alignment is anatomic with normal joint space. No abnormal soft tissue calcifications. XR/XR shoulder RT min 2V IMPRESSION: Normal right shoulder. Electronically signed by: Jorge Luis Mancilla MD 03/10/2024 05:59 PM EST RP
== END 2024-03-09 14:24 | disposition home or self-care (01) ==
LOC: HO.HMGCX 14:23
PROVIDERS: PCP Nurse Practitioner Family; Visit Provider Nurse Practitioner Family
DX: M25.511 Pain in right shoulder (principal)
CPT/HCPCS: 73030

== ENCOUNTER 2024-04-06 09:42 | Outpatient (AMB) | payer OTHER, SELFPAY ==
--- NOTE | 2024-04-06 09:46 | A.OFFVIS_ITS ---
Vital Signs 04/06/24 09:47 Height 5 ft 5 in Weight 163 lb 8 oz BMI 27.2 Intake Visit Reasons: Right shoulder pain and weakness Intake Note: Vera is a 44 year old female who presents with complaints of progressively worsening right shoulder pain and weakness. She describes her pain as sharp in nature. Most of the pain is along the lateral aspect of her right shoulder. The patient states that she did injure her shoulder approximately 6 months ago while lifting weights. Since that time she has had difficulty and pain when lifting her right hand above shoulder height. She has failed the last 6 weeks of conservative treatment which has included physical therapy exercises, Tylenol, anti-inflammatory medicines and lidocaine spray. She denies any numbness or tingling in either of her upper extremities. Allergies butorphanol [From Stadol] Allergy (Mild, Verified 04/06/24 09:47) Nausea and Vomiting animal dander Allergy (Unknown, Verified 04/06/24 09:47) SWOLLEN EYES morphine [MORPHINE] Allergy (Unknown, Verified 04/06/24 09:47) NAUSEA & VOMITING, nausea and vomiting lactose [LACTOSE] Adverse Reaction (Intermediate, Verified 04/06/24 09:47) DIARRHEA Medication List - Last Reconciled 04/06/24 by Ricki Meyer MD escitalopram oxalate 20 mg PO DAILY fluticasone propionate 50 mcg/actuation 1 spray intranasal BID levothyroxine 25 mcg PO DAILY omeprazole 20 mg PO DAILY PFSH Medical History (Updated 03/02/24 @ 08:57 by Jessica Iraheta, [facility]) Headache Thyroid disease Surgical History (Updated 11/05/23 @ 10:55 by Linh Hollins MA) [place] teeth removed Family History (Updated 11/05/23 @ 10:58 by Linh Hollins MA) Sister Asthma Maternal Grandmother Diabetes Thyroid disorder Mother Thyroid disorder Father Prostate cancer Social History Housing: House Patient Tobacco Use Status: Never used Tobacco e-Cigarette/Vaping Use: Never Used Second Hand Smoke Exposure: No service: No 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 occupational status: employed 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 Current occupational exposures/hazards: No Cognitive needs: No Hearing needs: No Vision needs: Yes Physical Exam Vital Signs: BMI result Body Mass Index 27.2 Const Other: Well-nourished well-developed very friendly female awake alert and oriented x3 in no acute distress Extrem Other: Bilateral upper extremity examination shows good capillary refill, no skin lesions noted, normal sensation light touch Right shoulder examination shows decreased range of motion when compared to her left shoulder, 4+ out of 5 strength with supraspinatus testing, positive impingement signs, tenderness over her acromioclavicular joint, no instability Results Reviewed Results Reviewed: X-rays of the patient's right shoulder show moderate to severe acromioclavicular joint narrowing, a type 2 acromion, no acute bony abnormalities Assessment & Plan Assessment & Plan (1) Right shoulder pain: Code(s): M25.511 - Pain in right shoulder Category: Medical Qualifiers: Chronicity: acute Qualified Code(s): M25.511 - Pain in right shoulder Plan Mrs. Hazel presents with right shoulder pain due to impingement syndrome and possible rotator cuff tearing. Thus, I will send the patient for an MRI of her right shoulder for further evaluation. I will see her back once the MRI is completed to discuss the findings and treatment options. Feel free to call me at any time should questions regarding her orthopedic management arise. I spent 21 minutes in reviewing the patient's records and imaging studies, seeing the patient and documenting in the medical record. Orders: Orders MR shoulder RT wo con Today M25.511 - Pain in right shoulder Coding Level of Care Code New Pt Level 3 (34349) Complex EM visit Add On G2211 Diagnoses Acute pain of right shoulder M25.511 Chronicity: acute
[2024-04-06 09:47] VITALS: BMI 27.2
== END 2024-04-06 10:05 | disposition home or self-care (01) ==
PROVIDERS: PCP Nurse Practitioner Family; Visit Provider Orthopaedic Surgery
DX: M25.511 Pain in right shoulder (principal)
CPT/HCPCS: 99203

== ENCOUNTER → 2024-04-06 09:42 | Outpatient (BNVA) | payer OTHER, SELFPAY | PROVIDERS: PCP Nurse Practitioner Family; Visit Provider Orthopaedic Surgery ==

== ENCOUNTER 2024-04-30 15:14 | Outpatient (REF) | payer OTHER, SELFPAY ==
--- NOTE | ~2024-04-30 | MR_ITS ---
CLINICAL HISTORY: pain right shoulder Exam: MRI of the right shoulder without intravenous contrast. Comparison: Radiographs March 09, 2024. Findings: No rotator cuff tears are identified. There is mild increased intrasubstance signal intensity within the distal infraspinatus and supraspinatus tendons indicative of tendinopathy. No muscle atrophy is identified. No tears of the glenoid labrum. Specifically, no tear of the superior labrum or the anteroinferior labrum is identified. The tendon of the long head of the biceps is appropriately positioned within the bicipital groove. There is a type 2 acromion. Minimal to mild degenerative change of the AC joint. No erosions. Impression: 1. Mild supraspinatus and infraspinatus tendinopathy without rotator cuff tear. 2. No labral tear. This document has been electronically signed by: Gurjit Adams MD on 05/01/2024 09:02:56
== END 2024-04-30 15:15 | disposition home or self-care (01) ==
LOC: HO.MRI 15:14
PROVIDERS: PCP Nurse Practitioner Family; Visit Provider Orthopaedic Surgery
DX: M25.511 Pain in right shoulder (principal)
CPT/HCPCS: 73221

== ENCOUNTER → 2024-04-30 15:26 | Outpatient (BNV) | payer OTHER, SELFPAY | PROVIDERS: PCP Nurse Practitioner Family; Visit Provider Radiology Diagnostic Radiology | DX: M25.511 Pain in right shoulder (principal) | CPT/HCPCS: 73221 ==

== ENCOUNTER 2024-05-06 07:45 | Outpatient (AMB) | payer OTHER, SELFPAY ==
[2024-05-06 07:50] VITALS: BMI 27.2
--- NOTE | 2024-05-06 07:50 | A.OFFVIS_ITS ---
Vital Signs 05/06/24 07:50 Height 5 ft 5 in Weight 163 lb 8 oz BMI 27.2 Intake Visit Reasons: OV-Right shoulder MRI review Intake Note: Vera is a 44 year old female who presents with complaints of progressively worsening right shoulder pain. She describes her pain as sharp in nature. She denies any weakness. She has been stretching her shoulder which gives her mild relief. She has tried Tylenol and anti-inflammatory medicines which gave her minimal relief. She wishes to hold off on surgery if at all possible. Allergies butorphanol [From Stadol] Allergy (Mild, Verified 05/06/24 07:50) Nausea and Vomiting animal dander Allergy (Unknown, Verified 05/06/24 07:50) SWOLLEN EYES morphine [MORPHINE] Allergy (Unknown, Verified 05/06/24 07:50) NAUSEA & VOMITING, nausea and vomiting lactose [LACTOSE] Adverse Reaction (Intermediate, Verified 05/06/24 07:50) DIARRHEA Medication List - Last Reconciled 05/06/24 by Ricki Meyer MD escitalopram oxalate 20 mg PO DAILY fluticasone propionate 50 mcg/actuation 1 spray intranasal BID levothyroxine 25 mcg PO DAILY omeprazole 20 mg PO DAILY [facility] Medical History (Updated 05/06/24 @ 08:07 by Ricki Meyer MD) Headache Thyroid disease Surgical History (Updated 11/05/23 @ 10:55 by Linh Hollins MA) [place] teeth removed Family History (Updated 11/05/23 @ 10:58 by Linh Hollins MA) Sister Asthma Maternal Grandmother Diabetes Thyroid disorder Mother Thyroid disorder Father Prostate cancer Social History Housing: House Patient Tobacco Use Status: Never used Tobacco e-Cigarette/Vaping Use: Never Used Second Hand Smoke Exposure: No service: No 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 occupational status: employed 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 Current occupational exposures/hazards: No Cognitive needs: No Hearing needs: No Vision needs: Yes Physical Exam Vital Signs: BMI result Body Mass Index 27.2 Const Other: Well-nourished well-developed very friendly female awake alert and oriented x3 in no acute distress Extrem Other: Bilateral upper extremity examination shows good capillary refill, no skin lesions noted, normal sensation light touch Right shoulder examination shows almost full range of motion when compared to her left shoulder, positive impingement signs 5/5 strength with supraspinatus testing, no instability Office Procedures AMB Joint Injection/Aspiration Joint Injection/Aspiration Primary Site: right shoulder Prep: site was prepped using aseptic technique Injected: 40 mg of, DepoMedrol and 1% plain lidocaine Procedure: The patient tolerated the procedure well Coding - Large joint Procedure code (CPT) selection complete Results Reviewed Results Reviewed: MRI of the patient's right shoulder shows moderate acromioclavicular joint narrowing, a type 2 acromion, signal change within the supraspinatus tendon most likely due to rotator cuff tendinosis Assessment & Plan Assessment & Plan (1) Impingement of right shoulder: Code(s): M25.811 - Other specified joint disorders, right shoulder Category: Medical Plan Ms. Hazel presents with right shoulder pain due to impingement syndrome. The risks and benefits of a right shoulder cortisone injection were discussed at length with the patient. The patient wished to proceed. She tolerated the injection well. She will continue with her home stretching program. She will contact me prior to her follow-up appointment in 3 months should any questions or concerns arise. Feel free to call me at any time should questions regarding her orthopedic management arise. I spent 20 minutes in reviewing the patient's records and imaging studies, seeing the patient and documenting in the medical record. Orders: Orders AMB Joint Injection/Aspiration Today M25.811 - Other specified joint disorders, right shoulder Coding Level of Care Code Est Pt Level 3 (91855) Complex EM visit Add On G2211 Diagnoses Impingement of right shoulder M25.811 CPT Codes Coding - Large joint: 87352 - Large joint ([id number])
== END 2024-05-06 08:06 | disposition home or self-care (01) ==
PROVIDERS: PCP Nurse Practitioner Family; Visit Provider Orthopaedic Surgery
DX: M25.811 Other specified joint disorders, right shoulder (principal)
CPT/HCPCS: 20610; 99213

== ENCOUNTER → 2024-05-06 07:45 | Outpatient (BNVA) | payer OTHER, SELFPAY | PROVIDERS: PCP Nurse Practitioner Family; Visit Provider Orthopaedic Surgery | DX: M25.811 Other specified joint disorders, right shoulder (principal) | CPT/HCPCS: 20610; J1010; J2003 ==

== ENCOUNTER 2024-06-10 07:40 | Outpatient (AMB) | payer OTHER, SELFPAY ==
--- OUTSIDE RECORDS SUMMARY | 2024-06-10 07:44 | XMS_ITS | Clinical Summary ---
Author Organization [facility] Address [address] [place] [address] Care Team Providers Care Software Implementation Specialist Name Role Phone Unavailable Primary Care Provider Unavailabl e Allergies Active Allergy Reactions Criticality Noted Date Comments Butorphanol 07/29/2022 Lactose 07/29/2022 Morphine 07/29/2022 Medications Medication Sig Dispensed Refills Start Date End Date Status escitalopram (LEXAPRO) tablet 10 mgIndications:Anxiety Take 1 tablet (10 mg total) by mouth daily. 90 tablet 2 07/29/2022 Active escitalopram (LEXAPRO) 20 MG tabletIndications:Anxi ety TAKE 1 TABLET EVERY DAY 90 tablet 1 08/22/2022 Active diphenoxylate-atropine (LOMOTIL) 2.5-0.025 MG per tablet TAKE 1 TABLET BY MOUTH 4 TIMES A DAY NEEDED FOR DIARRHEA 30 tablet 1 11/17/2022 Active Yegrsoqhbp-UOEZ-Mdqegf ne 50-300-40 MG CAPS TAKE 1 CAPSULE BY MOUTH EVERY DAY 30 capsule 1 11/17/2022 Active ibuprofen 600 MG tablet Take 1 tablet (600 mg total) by mouth every 6 (six) hours as needed for pain. 30 tablet 0 01/30/2023 Active levothyroxine (SYNTHROID) tablet 25 mcgIndications:Acquire d hypothyroidism Take 1 tablet (25 mcg total) by mouth daily. 90 tablet 3 01/30/2023 Active omeprazole (PriLOSEC) 40 MG capsuleIndications:Gas troesophageal reflux disease, unspecified whether esophagitis present TAKE 1 CAPSULE (40 MG TOTAL) BY MOUTH DAILY. 90 capsule 0 08/01/2023 Active Active Problems Problem Noted Date Diagnosed Date Seasonal allergies 07/29/2022 Acquired hypothyroidism 12/03/2017 Irritable bowel syndrome with diarrhea 8 Immunizations Name Administration Dates Next Due Covid-19 (Pfizer) Dilution Required 06/24/2020 Influenza Quad (Fluarix/Fluz one/FluLaval) 0.5mL (SD-IIV4) 01/29/2022,01/11/2020 Influenza Trivalent (Fluzone /Afluria) 5.0mL Multi-dose Vial 01/10/2021,01/13/2018 MMR 09/05/2018 Tdap 03/22/2021,06/08/2018,12/03/2017 Family History Medical History Relation Name Comments Prostate cancer Father Diabetes Maternal Grandmother Stroke Maternal Grandmother Hyperlipidemia Mother Thyroid disease Mother Macular degeneration Paternal Grandmother No Sig Med Hx Sister Relation Name Status Comments Father Alive Maternal Grandfather Maternal Grandmother Mother Alive Paternal Grandfather Paternal Grandmother Sister Alive Social History Tobacco Use Types Packs/Day Years Used Date Smoking Tobacco: Never Smokeless Tobacco: Never Alcohol Use Standard Drinks/Week Comments Yes 0 (1 standard drink = 0.6 oz pur e alcohol) Occa Sex and Gender Information Value Date Recorded Sex Assigned at Female 03/08/2020 9:08 AM EST Gender Identity Female 03/08/2020 9:08 AM EST Sexual Orientation Straight 03/08/2020 9: 08 AM EST Job Start Date Occupation Industry Not on file Not on file Not on file Last Filed Vital Signs Vital Sign Reading Time Taken Comments Blood Pressure 108/74 07/29/2022 1:06 PM EDT Pulse 80 07/29/2022 1:06 PM EDT Temperature 36.4 ??C (97.5 ??F) 07/29/2022 1:06 PM ED T Respiratory Rate 16 03/08/2020 8:58 AM EST Oxygen Saturation 98% 07/29/2022 1:06 PM EDT Inhaled Oxygen Concentration - - Weight 75.8 kg (167 lb) 07/29/2022 1:06 PM EDT Height 165.1 cm (5' 5 ) 03/08/2020 8:58 AM EST Body Mass Index 27.79 03/08/2020 8:58 AM EST Plan of Treatment Health Maintenance Due Date Last Done Comments Hepatitis B Vaccines (1 of 3 - 3-dose series) 1981 BMI Counseling 07/30/2023 07/29/2022, 07/13, 03/08/2020, Additional history exists Depression Screening 07/30/2023 07/29/2022, 03/08/20 20 Preventative Health Evaluation 07/30/2023 07/29/2022, 07/29/2022, 03/08/2020, Additional history exists COVID-19 Vaccine ( season) 2023 01/04/2023, 02/09/2021, 06/24/2020, Additional history exists Cervical Cancer Screening (Pap Smear) 07/24/2025 07/24/2022, 10/28/2018 DTap / Tdap / Td (4 - Td or Tdap) 03/22/2031 03/22/2021, 06/08/2018, 12/03/2017 Influenza Vaccine Completed 12/23/2023, , 01/29/2022, Additional history exists Hepatitis C Screening Discontinued Pneumococcal Vaccine Aged Out No long er eligible based on patient's age to complete this topic RSV Ped < 20 months Aged Out No longe r eligible based on patient's age to complete this topic
--- OUTSIDE RECORDS SUMMARY | 2024-06-10 07:44 | XMS_ITS | Patient Health Record ---
Author Organization [facility] Address [address] [place] [address] Care Team Providers Care Grain Origination Specialist Name Role Phone Jessica Iraheta Primary Care Provider Unavaila Alvaro Mancia Unavailable [phone] Xu Torres Unavailable Unavailable ALLERGIES Allergen (clinical drug ingredient) Drug/Non Drug Allergy documented on EMR Reaction Allergy Type Onset Date Status morphine Morphine Sulfate sensitive Drug Allergy Active dogs and cats (uncoded) Unknown Allergy Active lactose (uncoded) Unknown Allergy Ac tive REASON FOR REFERRAL No Information MEDICATIONS Medication SIG (Take, Route, Frequency, Duration) Notes Start Date End Date Status Hyoscyamine Sulfate 0.125 MG/5ML 1-2 tablets Orally every 6 hous prn 12/01/2013 Active Mirena 20 MCG/24HR Intrauterine Active Omeprazole 40 MG 1 capsule Orally Onc e a day 12/01/2013 Active Levothyroxine Sodium 25 MCG TAKE 2 PUFFS INHALATION BY MOUTH TWICE A DAY Oral for 30 Active SOCIAL HISTORY Sex Assigned At : Social History Observation Description Sex Assigned At Unknown PROBLEMS Problem Type ICD Code Onset Dates Problem Status W/U Status Risk SNOMED Code Notes Problem 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 Benign neopl asm of stomach (88819387) Problem Irritable bowel syndrome (564.1) Active confirmed Irritable b owel syndrome (04518373) Problem Diarrhea (787.91) Active confirmed Diar curly (51592188) Problem GERD (gastroesophageal reflux disease) (530.81) Active confirmed Gastroesophagea l reflux disease (246234864) Problem Abnormal computed tomography of gastrointestinal tract (793.4) Active confirmed Computed tomography of abdomen abnormal (finding) (56524260399969718 ) Problem Hiatal hernia (553.3) Active confirmed Hiatal hernia (69206294) PLAN OF TREATMENT Future Test Test Name Order Date Esophageal Motility study 05/31/2014 24 HR pH PROBE 05/31/2014 UPPER GI ENDOSCOPY 08/30/2014 Next Appt Details Provider Name:Alvaro Kim , 06/15/2024 01:20:00 PM, [address], [address], [place], [address], Insurance Providers Payer Name Payer Address Payer Phone Subscriber Number Group Number Insured Name Patient Relationship to Insured Coverage Start Date Coverage End Date [employer] ([place]) [address] [place] [address] [phone] [id number] VELVET SMITH Self - patient is the insured MEDICAL (GENERAL) HISTORY Medical History History ICD Code 04/04/2006 Upper endoscopy-- moderate-sized HH-no esophagitis--normal duodenal biopsies Colonoscopy 04/04/2006--Normal-normal bx from TI, and colon Irritable bowel syndrome GERD--in June of 2014 she h ad a 24-hour pH study off of omeprazole which was borderline positive for acid reflux--she did have worsening symptoms of reflux while off of the omeprazole and did have episodes of regurgitation documented on this study; esophageal motility study was consistent with probably some esophageal spasm, although the lower esophageal sphincter did relax normally Denies [place],DM,CVA,Lung disease,renal dise ase In [facility] [place] 08/2013 for 3 days for GI issues--abdominal pain--? related to IBS, ? related to ruptured ovarian cyst, ? infection--CT showed ? of TI inflammation Hypothyroidism EGD in 01/2014 with a small HH, relatively large hyperplastic/inflammatory gastric polyp--biopsies all negative, no celiac disease, no H.pylori Colonoscopy in 01/2014-WNL--bx neg for c olitis, internal hemorrhoids Surgical History Surgery Date(Month/Year) wisdom teeth extraction
--- NOTE | 2024-06-10 07:47 | MHC.OFFVIS ---
Intake Visit Reasons: OV- Right Shoulder Pain, last inj 05/06/24 Intake Note: Vera is a 44 year old female who presents with complaints of right shoulder pain. The patient states that she got fairly good relief initially from the cortisone injection she was given in April. She did aggravate her shoulder while getting a massage at the nail salon recently. She denies any numbness or tingling in either of her hands. Allergies butorphanol [From Stadol] Allergy (Mild, Verified 06/10/24 07:54) Nausea and Vomiting animal dander Allergy (Unknown, Verified 06/10/24 07:54) SWOLLEN EYES morphine [MORPHINE] Allergy (Unknown, Verified 06/10/24 07:54) NAUSEA & VOMITING, nausea and vomiting lactose [LACTOSE] Adverse Reaction (Intermediate, Verified 06/10/24 07:54) DIARRHEA Medication List - Last Reconciled 06/10/24 by Ricki Meyer MD escitalopram oxalate 20 mg PO DAILY fluticasone propionate 50 mcg/actuation 1 spray intranasal BID levothyroxine 25 mcg PO DAILY omeprazole 20 mg PO DAILY [facility] Medical History (Updated 05/06/24 @ 08:07 by Ricki Meyer MD) Headache Thyroid disease Surgical History (Updated 11/05/23 @ 10:55 by Linh Hollins MA) [place] teeth removed Family History (Updated 11/05/23 @ 10:58 by Linh Hollins MA) Sister Asthma Maternal Grandmother Diabetes Thyroid disorder Mother Thyroid disorder Father Prostate cancer Social History Housing: House Patient Tobacco Use Status: Never used Tobacco e-Cigarette/Vaping Use: Never Used Second Hand Smoke Exposure: No service: No Current occupational status: employed 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 Current occupational exposures/hazards: No Cognitive needs: No Hearing needs: No Vision needs: Yes Physical Exam Const Other: Well-nourished well-developed very friendly female awake alert and oriented x3 in no acute distress Extrem Other: Bilateral upper extremity examination shows good capillary refill, no skin lesions noted, normal sensation light touch Right shoulder examination shows slightly decreased range of motion when compared to her left shoulder, 4+ out of 5 strength with supraspinatus testing, positive impingement signs Assessment & Plan Assessment & Plan (1) Impingement of right shoulder: Code(s): M25.811 - Other specified joint disorders, right shoulder Category: Medical Plan Ms. Hazel presents with right shoulder pain due to impingement syndrome. I had a lengthy discussion with the patient regarding the treatment options. She wishes to hold off on surgery for as long as possible. I agree with this plan. I did give her a prescription for a Medrol Dosepak. She will continue with her range motion exercises to prevent stiffness. She will contact me prior to her follow-up appointment in 6 weeks should any questions or concerns arise. Feel free to call me at any time should questions regarding her orthopedic management arise. I spent 20 minutes in reviewing the patient's records and imaging studies, seeing the patient and documenting in the medical record. Medications: New methylprednisolone (Medrol (Clive)) PO PER PKG DIR 21 ea 0RF Coding Level of Care Code Est Pt Level 3 (62196) Complex EM visit Add On G2211 Diagnoses Impingement of right shoulder M25.811
== END 2024-06-10 08:01 | disposition home or self-care (01) ==
PROVIDERS: PCP Nurse Practitioner Family; Visit Provider Orthopaedic Surgery
DX: M25.811 Other specified joint disorders, right shoulder (principal)
CPT/HCPCS: 99213

== ENCOUNTER → 2024-06-10 07:40 | Outpatient (BNVA) | payer OTHER, SELFPAY | PROVIDERS: PCP Nurse Practitioner Family; Visit Provider Orthopaedic Surgery ==

== ENCOUNTER 2024-07-15 07:33 | Outpatient (AMB) | payer OTHER, SELFPAY ==
--- OUTSIDE RECORDS SUMMARY | 2024-07-15 07:37 | XMS_ITS | Clinical Summary ---
Author Organization [facility] Address [address] [place] [address] Care Team Providers Care Base Filler Operator Name Role Phone Unavailable Primary Care Provider [...] FOR DIARRHEA 30 tablet 1 11/17/2022 Active Zumdfuzbxp-QSRD-Rivjpm ne 50-300-40 MG CAPS TAKE 1 CAPSULE [...]
--- OUTSIDE RECORDS SUMMARY | 2024-07-15 07:37 | XMS_ITS ---
Author Organization [facility] Address [address] [place] [address] Care Team Providers Care Carpenter Maintenance Name Role Phone Jessica Iraheta Primary Care Provider UnavailAlvaro Stone Unavailable [phone] Xu Torres Unavailable Unavailable Allergies Allergen (clinical drug ingredient) Drug/Non Drug Allergy documented on EMR Reaction Allergy Type Onset Date Status Stadol Unknown Drug Allergy Active dogs and cats (uncoded) Unknown Allergy Active lactose (uncoded) Unknown Allergy Ac tive morphine Morphine Sulfate sensitive Drug Allergy Active REASON FOR VISIT Patient presents today for DIARRHEA, PERUMBILICAL PAIN, IBS Medications Medication SIG (Take, Route, Frequency, Duration) Notes Start Date End Date Status Mirena 20 MCG/24HR Intrauterine Active Omeprazole 20 MG 1 capsule Orally Onc e a day 12/01/2013 Active Lexapro Active Levothyroxine Sodium 25 MCG 1 tablet in the morning on an empty stomach Orally Once a day Active Social History Alcohol Screen Question Answer Notes Did you have a drink contain ing alcohol in the past year? Yes How often did you have a dri nk containing alcohol in the past year? Never (0 point) How many drinks did you have on a typical day when you were drinking in the past year? 1 or 2 drinks (0 point) Points 0 Interpretation Negative Section Notes: Nonsmoker; no sig alcohol Problems Problem Type SNOMED Code ICD Code Onset Dates Problem Status W/U Status Risk Notes Problem Irritable bowel syndrome (16830446) Irritable bowel syndrome (K58.9) Active confirmed Problem Gastroesophageal reflux disease (509758769) GERD (gastroesopha geal reflux disease) (K21.9) Active confirmed Problem Family History of Cancer of Colon (Situation) (165001240) Family history of colon cancer (Z80.0) Active confirmed Problem Hiatal hernia (62950627) Hiatal hernia (K44.9) Active confirmed Vital Signs Blood pressure systolic 111 mm Hg 06/16/19 25 Blood pressure diastolic 111 mm Hg 025 Height 65 in 06/15/2024 Weight 161 lbs 06/15/2024 BMI 26.79 kg/m2 06/15/2024 Procedures Procedure Date Ordered Date Performed Result Body Sit e UPPER GI ENDOSCOPY 06/15/2024 N/A COLONOSCOPY 06/15/2024 N/A Encounters Encounter Location Date Provider Diagnosis [facility] [address] [place] [address] 06/15/2024 Alvaro Kim Irritable bowel syndrome K58.9 ; GERD (gastroesophageal reflux disease) K21.9 ; Family history of colon cancer Z80.0 ; Hiatal hernia K44.9 and Colon cancer screening Z12.11 Assessments Encounter Date Diagnosis (ICD Code) Assessment Notes Treatment Notes Treatment Clinical Notes Section Notes 06/15/2024 Irritable bowel syndrome (ICD-10 - K58.9) 06/15/2024 GERD (gastroesophage al reflux disease) (ICD-10 - K21.9) 06/15/2024 Family history of colon cancer (ICD-10 - Z80.0) 06/15/2024 Hiatal hernia (ICD-10 - K44.9) 06/15/2024 Colon cancer screening (ICD-10 - Z12.11) Plan Of Treatment Pending Test Test Name Order Date UPPER GI ENDOSCOPY 06/15/2024 COLONOSCOPY 06/15/2024 Next Appt Details Provider Name:Alvaro Kim , 10/01/2024 09:00:00 AM, [address] [place] [address] , [place], [place], [phone], Progress Notes * VELVET SMITHDOB:1979 (44 yo F)Acc No.[id number]:06/15/2024 Progress Notes Patient:?VELVET SMITH Provider:?Alvaro Kim MD :1980???Age:44 Y???Sex:Female D ate:06/15/2024 Address:[id number] Pcp:Jessica Iraheta Subjective: * Chief Complaints: * ???1. Patient presents today for DIARRHEA, PERUMBILICAL PAIN, IBS. * Medical History:?04/04/2006 Upper endoscopy--moderate-sized HH-no esophagitis--normal duodenal biopsies, Colonoscopy 04/04/2006--Normal-normal bx from TI, and colon, Irritable bowel syndrome, GERD--in June of 2014 she had a 24-hour pH study off of omeprazole which was borderline positive for acid reflux--she did have worsening symptoms of reflux while off of the omeprazole and did have episodes of regurgitation documented on this study; esophageal motility study was consistent with probably some esophageal spasm, although the lower esophageal sphincter did relax normally, Denies [place],DM,CVA,Lung disease,renal disease, In [facility] [place] 3 days for GI issues--abdominal pain--? related to IBS, ? related to ruptured ovarian cyst, ? infection--CT showed ? of TI inflammation, Hypothyroidism, EGD in 01/2014 with a small HH, relatively large hyperplastic/inflammatory gastric polyp--biopsies all negative, no celiac disease, no H.pylori, Colonoscopy in 01/2014-WNL--bx neg for colitis, internal hemorrhoids, Anxiety. * Surgical History:?wisdom arin th extraction 2008, D&C 2020, trigger thumb right hand 2023, . * Family History:?Father: fay jones?Mother: alive, diverticulitis, diagnosed with HTN (hypertension).?Maternal uncle: alive, colon cancer at age 34, diagnosed with Colon cancer.? * Social History:?Tobacco Use:?Tobacco Use/Smoking?Are you a: nonsmoker.?Drugs/Alcohol:?Alcohol Screen?Did you have a drink containing alcohol in the past year??Yes,?How often did you have a drink containing alcohol in the past year??Never (0 point),?How many drinks did you have on a typical day when you were drinking in the past year??1 or 2 drinks (0 point),?Points?0,?Interpretation?Negative.?Miscellaneous:?Marital status: . 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 ???Nonsmoker; no sig alcohol. * Medications:?Taking Levothyr oxine Sodium 25 MCG Tablet 1 tablet in the morning on an empty stomach Orally Once a day , Taking Lexapro , Taking Omeprazole 20 MG Tablet Delayed Release 1 capsule Orally Once a day , Taking Mirena 20 MCG/24HR Intrauterine Device Intrauterine , Discontinued Levothyroxine Sodium 25 MCG Tablet TAKE 2 PUFFS INHALATION BY MOUTH TWICE A DAY Oral , Discontinued Hyoscyamine Sulfate 0.125 MG/5ML Tablet 1-2 tablets Orally every 6 hous prn , Medication List reviewed and reconciled with the patient * Allergies:?Morphine Sulfate: sensitive - Side Effects, lactose, dogs and cats, Stadol. Objective: * Vitals:?Wt: 161 lbs, Ht: 65 in, BMI:26.79Index, BP: 111/111 mm Hg, Wt-k.03. Assessment: * Assessment: 1.?Irritable bowel syndrome - K58.9 (Primary)???2.?GERD (gastroesophageal reflux disease) - K21.9???3.?Family history of colon cancer - Z80.0???4.?Hiatal hernia - K44.9???5.?Colon cancer screening - Z12.11??? Plan: * Treatment: 2.?Family history of colon cancer?Procedure: COLONOSCOPY* with MAC 3.?Hiatal hernia?Procedure: UPPER GI ENDOSCOPY* with MAC 4.?Colon cancer screening?Procedure: COLONOSCOPY* with MAC * Procedure Codes:?75066 UPPR GI ENDOSCOPY, DIAGNOSIS, 89455 DIAGNOSTIC COLONOSCOPY * * The named appointment provid er may or may not be the originator of this progress note, and it is not deemed complete until electronically signed by the appointment provider. Sign off status: Pending * Provider:?Alvaro Kim MD Date:? 025 Generated for Verito nichole/Aicha/Sacha on:?07/15/2024 07:36 AM EDT
--- OUTSIDE RECORDS SUMMARY | 2024-07-15 07:37 | XMS_ITS | Patient Health Record ---
Author Organization [facility] Address [address] [place] [address] Care Team Providers Care Cylinder Loader Name Role Phone Jessica Iraheta Primary Care Provider Alvaro Nunn Unavailable [phone] Xu Torres Unavailable Unavailable Allergies Allergen (clinical drug ingredient) Drug/Non Drug Allergy documented on EMR Reaction Allergy Type Onset Date Status Stadol Unknown Drug Allergy Active morphine Morphine Sulfate sensitive Drug Allergy Active dogs and cats (uncoded) Unknown Allergy Active lactose (uncoded) Unknown Allergy Ac tive Reason For Referral No Information Medications Medication SIG (Take, Route, Frequency, Duration) [...] Negative Section Notes: Nonsmoker; no sig alcohol Nonsmoker; no sig alcohol Nonsmoker; no sig alcohol Nonsmoker; no sig alcohol Problems Problem Type SNOMED Code ICD Code Onset Dates Problem Status W/U Status Risk Notes Problem Benign neoplasm of stomach (30021585) 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 Problem Irritable bowel syndrome (51660241) Irritable bowel syndrome (564.1) Active confirmed Problem Diarrhea (10948786) Diarrhea (787.91) Active co nfirmed Problem Gastroesophageal reflux disease (443170178) GERD (gastroesophageal reflux disease) (530.81) Active confirmed Problem Computed tomography of abdomen abnormal (finding) (85778269565523978) Abnormal computed tomography of gastrointestinal tract (793.4) Active confirmed Problem Hiatal hernia (79312376) Hiatal hernia (553.3) Active confirmed Problem Irritable bowel syndrome (97891403) Irritable bowel syndrome (K58.9) Active confirmed Problem Family History of Cancer of Colon (Situation) (096859515) Family history of colon cancer (Z80.0) Active confirmed Problem Hiatal hernia (23956192) Hiatal hernia (K44.9) Active confirmed Problem Gastroesophageal reflux disease (987625086) GERD (gastroesophageal reflux disease) (K21.9) Active confirmed Vital Signs Blood pressure diastolic 111 mm Hg 06/15/2024 Height 65 in 06/15/2024 Blood pressure systolic 111 mm Hg 06/15/2024 Weight 161 lbs 06/15/2024 BMI 26.79 kg/m2 06/15/2024 Procedures Procedure Date Ordered Date Performed Result Body Sit e UPPER GI ENDOSCOPY 06/15/2024 N/A COLONOSCOPY 06/15/2024 N/A Encounters Encounter Location Date Provider Diagnosis [facility] [address] [place] [address] 06/15/2024 Alvaro Kim Irritable bowel syndrome K58.9 [...] Date UPPER GI ENDOSCOPY 06/15/2024 COLONOSCOPY 06/15/2024 Future Test Test Name Order Date Esophageal Motility study 05/31/2014 24 HR pH PROBE 05/31/2014 UPPER GI ENDOSCOPY 08/30/2014 Next Appt Details Provider Name:Alvaro Kim , 10/01/2024 09:00:00 AM, [address] , [place], [place], [phone], Insurance Providers Payer Name Payer Address Payer Phone Subscriber Number Group Number Insured Name Patient Relationship to Insured Coverage Start Date Coverage End Date [employer] ([employer]) [address] [place] [address] [id number] VELVET SMITH Self - patient is the insured Medical (General) History Medical History History ICD Code 04/04/2006 Upper [...] lower esophageal sphincter did relax normally Denies [place],DM,CVA,Lung disease,renal dise ase In [facility] [place] [place] 08/[place] for 3 days for GI issues--abdominal pain--? related to IBS, ? related to ruptured ovarian cyst, ? infection--CT showed ? of TI inflammation Hypothyroidism EGD in 01/2014 with a small HH, relatively large hyperplastic/inflammatory gastric polyp--biopsies all negative, no celiac disease, no H.pylori Colonoscopy in 01/2014-WNL--bx neg for c olitis, internal hemorrhoids Anxiety Surgical History Surgery Date(Month/Year) 2018,2021 trigger thumb right hand 2023 D&C 2020 wisdom teeth extraction 2008
[2024-07-15 07:43] VITALS: BMI 27.1
--- NOTE | 2024-07-15 07:43 | MHC.OFFVIS ---
Vital Signs 07/15/24 07:43 Height 5 ft 5 in Weight 163 lb BMI 27.1 Intake Visit Reasons: Right shoulder pain, neck pain Intake Note: Vera is a 44 year old female who presents with complaints of progressively worsening neck pain which radiates down her right arm. The patient describes her pain as sharp in nature. The patient states that at times the pain ?shoots? into her right arm. Her symptoms have gotten worse over the last year in spite of continued non operative treatments. She also reports intermittent pain along the lateral aspect of her right shoulder. She reports intermittent weakness in her right upper extremity. She has failed the last 6 weeks of conservative treatment which have included Tylenol, anti-inflammatory medicines, a Medrol Dosepak, a home exercise program and physical therapy exercises. She has had a cortisone injection given into her right shoulder which gave her minimal relief. Allergies butorphanol [From Stadol] Allergy (Mild, Verified 07/15/24 07:48) Nausea and Vomiting animal dander Allergy (Unknown, Verified 07/15/24 07:48) SWOLLEN EYES morphine [MORPHINE] Allergy (Unknown, Verified 07/15/24 07:48) NAUSEA & VOMITING, nausea and vomiting lactose [LACTOSE] Adverse Reaction (Intermediate, Verified 07/15/24 07:48) DIARRHEA Medication List - Last Reviewed 07/15/24 by TANISHA Zarate escitalopram oxalate 20 mg PO DAILY fluticasone propionate 50 mcg/actuation 1 spray intranasal BID levothyroxine 25 mcg PO DAILY methylprednisolone (Medrol (Clive)) PO PER PKG DIR omeprazole 20 mg PO DAILY PFSH Medical History (Updated 07/15/24 @ 08:04 by Ricki Meyer MD) Headache Thyroid disease Surgical History (Updated 11/05/23 @ 10:55 by Linh Hollins MA) [place] teeth removed Family History (Updated 11/05/23 @ 10:58 by Linh Hollins MA) Sister Asthma Maternal Grandmother Diabetes Thyroid disorder Mother Thyroid disorder Father Prostate cancer Social History Housing: House Patient Tobacco Use Status: Never used Tobacco e-Cigarette/Vaping Use: Never Used Second Hand Smoke Exposure: No service: No Current occupational status: employed 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 Current occupational exposures/hazards: No Cognitive needs: No Hearing needs: No Vision needs: Yes Physical Exam Vital Signs: BMI result Body Mass Index 27.1 Neck Other: Cervical spine examination shows pain with range of motion, right-sided paraspinal muscle tenderness, positive Spurling's test, 4/5 strength with testing of her right biceps and wrist extensors when compared to 5/5 strength on her left side Results Reviewed Results Reviewed: MRI of the patient's right shoulder shows moderate to severe acromioclavicular joint narrowing, a type 2 acromion, no acute bony abnormalities Assessment & Plan Assessment & Plan (1) Impingement of right shoulder: Code(s): M25.811 - Other specified joint disorders, right shoulder Category: Medical (2) Right shoulder pain: Code(s): M25.511 - Pain in right shoulder Category: Medical Qualifiers: Chronicity: acute Qualified Code(s): M25.511 - Pain in right shoulder (3) Neck pain, chronic: Code(s): M54.2 - Cervicalgia; G89.29 - Other chronic pain Category: Medical Plan Ms. Hazel presents with progressively worsening neck pain which radiates into her right arm most likely due to cervical stenosis or a disc herniation. Thus, I will send the patient for an MRI of her cervical spine for further evaluation. I will see her back once the MRI is completed to discuss the findings and treatment options. She will call me prior to that time should her symptoms worsen in any way. Feel free to call me at any time should questions regarding her orthopedic management arise. I spent 21 minutes in reviewing the patient's records and imaging studies, seeing the patient and documenting in the medical record. Orders: Orders MR cervical spine wo con Today G89.29 - Other chronic pain, M54.2 - Cervicalgia Coding Level of Care Code Est Pt Level 3 (37004) Complex EM visit Add On G2211 Diagnoses Impingement of right shoulder M25.811 Acute pain of right shoulder M25.511 Chronicity: acute Neck pain, chronic M54.2; G89.29
== END 2024-07-15 08:05 | disposition home or self-care (01) ==
LOC: HO.HOS 07:34
PROVIDERS: PCP Nurse Practitioner Family; Visit Provider Orthopaedic Surgery
DX: M25.811 Other specified joint disorders, right shoulder (principal); M25.511 Pain in right shoulder; M54.2 Cervicalgia; G89.29 Other chronic pain
CPT/HCPCS: 99213

== ENCOUNTER 2024-07-28 08:05 | Outpatient (REF) | payer OTHER, SELFPAY ==
--- NOTE | ~2024-07-28 | MR_ITS ---
EXAMINATION: MR CERVICAL SPINE WITHOUT CONTRAST CLINICAL INFORMATION: Cervicalgia. COMPARISON: None available. TECHNIQUE: MRI of the cervical spine was obtained using routine sequences without contrast. FINDINGS: Craniocervical junction is intact and normal. No bone marrow STIR signal abnormality. Incomplete fusion C3-4. Disc desiccation, C5-6 and to a lesser extent C4-5 and C6-7. Normal alignment. There is a less than 14 mm CSF signal with a fusiform appearance extending from C4-5 to C7-T1 more conspicuous at C6-7. C2-3: No disc herniation. No neuroforamina stenosis. C3-4: No disc herniation. No neuroforamina stenosis. C4-5: Broad-based disc osteophyte complex formation. No cord compression. Left neuroforamina narrowing on a degenerative basis. C5-6: Broad-based disc osteophyte complex formation. No cord compression. Right neuroforamina narrowing on a degenerative basis. C6-7: Broad-based disc osteophyte complex formation. No cord compression. Bilateral neuroforamina narrowing. C7-T1: No disc herniation. No neuroforamina stenosis. No prevertebral compartment hematoma, mass or fluid collection. Flow-void signal within the main vessels is normal. Right vertebral artery is dominant. MR/MR cervical spine wo con IMPRESSION: Prominent central canal of the spinal cord versus less likely hydrosyringomyelia, C6-7. Cervical spondylosis C4-5 C5-6 and C6-7 levels without cord compression. No Chiari malformation. Consider Klippel-Feil syndrome.. Electronically signed by: Pierre Deleon MD 07/28/2024 03:28 PM EDT
--- OUTSIDE RECORDS SUMMARY | 2024-07-28 08:10 | XMS_ITS ---
Author Organization [facility] Address [address] [place] [address] Care Team Providers Care Prospect Manager Name Role Phone Jessica Iraheta Primary Care Provider UnavailAlvaro Stone Unavailable [phone] Xu Torres Unavailable Unavailable Allergies Allergen (clinical [...] Status Risk Notes Problem Irritable bowel syndrome (12707870) Irritable bowel syndrome (K58.9) Active confirmed Problem Gastroesophageal reflux disease (450601857) GERD (gastroesopha geal reflux disease) (K21.9) Active confirmed Problem Family History of Cancer of Colon (Situation) (471348750) Family history of colon cancer (Z80.0) Active confirmed Problem Hiatal hernia (83883273) Hiatal hernia (K44.9) Active confirmed Vital Signs Blood pressure systolic 111 mm Hg 06/16/19 25 Blood pressure diastolic 111 mm Hg 025 Height 65 in 06/15/2024 Weight 161 lbs 06/15/2024 BMI 26.79 kg/m2 06/15/2024 Procedures Procedure Date Ordered Date Performed Result Body Sit e UPPER GI ENDOSCOPY 06/15/2024 N/A COLONOSCOPY 06/15/2024 N/A Encounters Encounter Location Date Provider Diagnosis [facility] [address] [facility] [address] [place] [address] 06/15/2024 Alvaro Kim Irritable bowel syndrome K58.9 [...] ENDOSCOPY 06/15/2024 COLONOSCOPY 06/15/2024 Next Appt Details Follow Up: prn, Reason: Provider Name:Alvaro Kim , 10/01/2024 09:00:00 AM, [address] [place] [address] , [place], [place], [phone], Progress Notes * VELVET SMITHDOB:1979 (44 yo F)Acc No.[id number]:06/15/2024 Progress Notes Patient:?VELVET SMITH Provider:?Alvaro Kim MD :1980???Age:44 Y???Sex:Female D ate:06/15/2024 Address:[place], [id number] Pcp:Jessica Iraheta Subjective: * Chief Complaints: * ???Patient presents today fo r DIARRHEA, PERUMBILICAL PAIN, IBS * Medical History:? * Surgical History:?wisdom arin th extraction 2008D&C 2020trigger thumb right hand -section * Hospitalization/Major Diagno stic Procedure:?No Hospitalization History. * Family History:?Father: fay jones?Mother: alive, diverticulitis, [...] first grade. ???Nonsmoker; no sig alcohol. * Medications:?TakingLevothyro xine Sodium 25 MCG Tablet 1 tablet in the morning on an empty stomach Orally Once a day Lexapro Omeprazole 20 MG Tablet Delayed Release 1 capsule Orally Once a day Mirena 20 MCG/24HR Intrauterine Device Intrauterine Taking Levothyroxine Sodium 25 MCG Tablet 1 tablet in the morning on an empty stomach Orally Once a day Taking Lexapro Taking Omeprazole 20 MG Tablet Delayed Release 1 capsule Orally Once a day Taking Mirena 20 MCG/24HR Intrauterine Device Intrauterine DiscontinuedLevothyroxine Sodium 25 MCG Tablet TAKE 2 PUFFS INHALATION BY MOUTH TWICE A DAY Oral Hyoscyamine Sulfate 0.125 MG/5ML Tablet 1-2 tablets Orally every 6 hous prn Medication List reviewed and reconciled with the patientDiscontinued Levothyroxine Sodium 25 MCG Tablet TAKE 2 PUFFS INHALATION BY MOUTH TWICE A DAY Oral Discontinued Hyoscyamine Sulfate 0.125 MG/5ML Tablet 1-2 tablets Orally every 6 hous prn Medication List reviewed and reconciled with the patient * Allergies:?Morphine Sulfate: sensitive - Side Effectslactosedogs and catsStadolyes[Allergies Verified] Objective: * Vitals:?Wt: 161 lbs, Ht: 65 in, BMI:26.79Index, BP: 111/111 mm Hg, Wt-k.03. Assessment: * Assessment: 1.?GERD (gastroesophageal re flux disease) - K21.9 (Primary)???2.?Irritable bowel syndrome - K58.9???3.?Family history of colon cancer - Z80.0???4.?Hiatal hernia - K44.9???5.?Colon cancer screening - Z12.11??? Plan: * Treatment: 2.?Family history of colon cancer?Procedure: COLONOSCOPY* with MAC 3.?Hiatal hernia?Procedure: UPPER GI ENDOSCOPY* with MAC 4.?Colon cancer screening?Procedure: COLONOSCOPY* with MAC * Procedure Codes:?76338 UPPR GI ENDOSCOPY, [id number] DIAGNOSTIC [id number] TOBACCO [id number] BP SCR NOT PRFRM REC REASON NOS * Follow Up:?prn * * Sign off status: Completed true * Provider:?Alvaro Kim MD Date:? 025 Generated for Verito nichole/Aicha/eTransmitting on:?07/28/2024 08:10 AM EDT
--- OUTSIDE RECORDS SUMMARY | 2024-07-28 08:10 | XMS_ITS | Clinical Summary ---
Author Organization [facility] Address [address] [place] [address] Care Team Providers Care Dock Guard Name Role Phone Unavailable Primary Care Provider [...] FOR DIARRHEA 30 tablet 1 11/17/2022 Active Shadzejkiy-FGRP-Zexmjo ne 50-300-40 MG CAPS TAKE 1 CAPSULE [...]
--- OUTSIDE RECORDS SUMMARY | 2024-07-28 08:11 | XMS_ITS | Patient Health Record ---
Author Organization [facility] Address [address] [place] [address] Care Team Providers Care Sales Representative Wire Rope Name Role Phone Jessica Iraheta Primary Care Provider Alvaro Nunn Unavailable [phone] Xu Torres Unavailable Unavailable Allergies Allergen (clinical [...] Status Risk Notes Problem Irritable bowel syndrome (08631636) Irritable bowel syndrome (K58.9) Active confirmed Problem Family History of Cancer of Colon (Situation) (569927931) Family history of colon cancer (Z80.0) Active confirmed Problem Hiatal hernia (36157605) Hiatal hernia (K44.9) Active confirmed Problem Gastroesophageal reflux disease (502551221) GERD (gastroesopha geal reflux disease) (K21.9) Active confirmed Vital Signs Blood pressure diastolic 111 mm Hg 06/15/2024 Height 65 in 06/15/2024 Blood pressure systolic 111 mm Hg 06/15/2024 Weight 161 lbs 06/15/2024 BMI 26.79 kg/m2 06/15/2024 Procedures Procedure Date Ordered Date Performed Result Body Sit e UPPER GI ENDOSCOPY 06/15/2024 N/A COLONOSCOPY 06/15/2024 N/A Encounters Encounter Location Date Provider Diagnosis [facility] [address] [facility] [address] [place] [address] 06/15/2024 Alvaro Kim Irritable bowel syndrome K58.9 [...] Name:Alvaro Kim , 10/01/2024 09:00:00 AM, [address] [facility] , [place], [place], [phone], Insurance Providers Payer Name Payer Address Payer Phone Subscriber Number Group Number Insured Name Patient Relationship to Insured Coverage Start Date Coverage End Date [facility] Insurance ([facility]) [address] [place] [address] [phone] [id number] SARAH VELVET Self - patient is the insured Medical [...] lower esophageal sphincter did relax normally Denies [place],DM,CVA,Lung disease,renal dise ase [place] [facility] [place] for 3 days for GI issues--abdominal [...]
== END 2024-07-28 08:06 | disposition home or self-care (01) ==
LOC: HO.MRI 08:05
PROVIDERS: PCP Nurse Practitioner Family; Visit Provider Orthopaedic Surgery
DX: M54.2 Cervicalgia (principal); G89.29 Other chronic pain
CPT/HCPCS: 72141

== ENCOUNTER → 2024-07-28 08:12 | Outpatient (BNV) | payer OTHER, SELFPAY | PROVIDERS: PCP Nurse Practitioner Family; Visit Provider Radiology Diagnostic Radiology | DX: M47.812 Spondylosis without myelopathy or radiculopathy, cervical region (principal) | CPT/HCPCS: 72141 ==

== ENCOUNTER 2024-07-30 09:33 | Outpatient (AMB) | payer OTHER, SELFPAY ==
--- NOTE | 2024-07-30 07:26 | A.OFFPC_ITS ---
Intake Visit Reasons: review imaging Intake Note: telehealth to review imaging Dynamic Etching Processor Required: No Allergies butorphanol [From Stadol] Allergy (Mild, Verified 07/30/24 09:50) Nausea and Vomiting animal dander Allergy (Unknown, Verified 07/30/24 09:50) SWOLLEN EYES morphine [MORPHINE] Allergy (Unknown, Verified 07/30/24 09:50) NAUSEA & VOMITING, nausea and vomiting lactose [LACTOSE] Adverse Reaction (Intermediate, Verified 07/30/24 09:50) DIARRHEA Medication List - Last Reconciled 07/30/24 by Jessica Iraheta, [facility]- escitalopram oxalate 20 mg PO DAILY fluticasone propionate 50 mcg/actuation 1 spray intranasal BID levothyroxine 25 mcg PO DAILY methylprednisolone (Medrol (Clive)) PO PER PKG DIR omeprazole 20 mg PO DAILY Tobacco use date assessed: 07/30/24 Dental Screening Dental Screen Date: 07/30/24 Did you have a dental visit in the last 12 months?: Yes Did you have a dental problem in the last 6 months where you did not have access to dental care?: No Was dental information given to patient?: Patient has dentist HPI HPI Comments History of Present Illness Details Telehealth visit for this 44-year-old female presenting with neck pain and potential need for neurosurgical referral. - Neck pain has persisted with no signif icant improvement, prompting evaluation. - She underwent hand surgery in April of the previous year and noted persisting symptoms originating from the shoulder area post-surgery. - Concerns about neck pain are heightene d due to a family precedent of neck surgery experienced by her mother at a similar age. - The patient has adapted workout routin es to bodyweight exercises due to the symptoms, recognizing the importance of physical activity for well-being. - There is right shoulder discomfort aníbal ked to a bone spur, with the patient avoiding lifting on the affected side. - She had MRI ordered by [facility] Orthoteja as below. Assessment and Plan 1. Neck pain: I have determined a referral to neurosurgery is appropriate after consulting with the neurosurgeon on her MRI. The next step includes a meeting with Dr. Raul Virgen at [place]. This decision is based on persistent symptoms, lack of improvement, and family history and MRI results, as below. I recommend continued bodyweight exercises to prevent exacerbation of symptoms, given her discomfort linked to a bone spur. Emphasis on lifting with the left side is advised for symptom management. I encouraged maintaining her current exercise routine, emphasizing its importance for mental health while ensuring avoidance of exacerbating activities. Telehealth Attestation I attest that this consultation was conducted via telehealth, and the documentation accurately reflects the visit as it occurred through remote communication. The patient has been explained that this is an interactive (audio/video) telehealth encounter and what that consists of. The patient understands and wishes to proceed. Sembraire platform was used. Total time spent caring for the patient today was 23 minutes. This includes time spent before the visit reviewing the chart, time spent during the visit, and time spent after the visit on documentation, reviewing laboratory results, diagnostic imaging, medications, performing a medically necessary evaluation, counseling on diagnoses, care coordination, ordering appropriate tests, ordering appropriate medications, review of tests performed by other providers, reporting test results with the patient, communication with other healthcare providers. [place] [address] Magnetic Resonance Report Signed Patient: Vera Hazel MR#: [id number] : 1980 Acct:[id number] Age/Sex: 44 / F ADM Date: 07/28/24 Loc: HO.MRI Attending Dr: Ricki Meyer MD Ordering Physician: Ricki Meyer MD Date of Service: 07/28/24 Procedure(s): MR cervical spine wo con Accession Number(s): [id number] cc: Jessica Iraheta AQUACULTURIST-; Ricki Meyer MD~ EXAMINATION: MR CERVICAL SPINE WITHOUT CONTRAST CLINICAL INFORMATION: Cervicalgia. COMPARISON: None available. TECHNIQUE: MRI of the cervical spine was obtained using routine sequences without contrast. FINDINGS: Craniocervical junction is intact and normal. No bone marrow STIR signal abnormality. Incomplete fusion C3-4. Disc desiccation, C5-6 and to a lesser extent C4-5 and C6-7. Normal alignment. There is a less than 14 mm CSF signal with a fusiform appearance extending from C4-5 to C7-T1 more conspicuous at C6-7. C2-3: No disc herniation. No neuroforamina stenosis. C3-4: No disc herniation. No neuroforamina stenosis. C4-5: Broad-based disc osteophyte complex formation. No cord compression. Left neuroforamina narrowing on a degenerative basis. C5-6: Broad-based disc osteophyte complex formation. No cord compression. Right neuroforamina narrowing on a degenerative basis. C6-7: Broad-based disc osteophyte complex formation. No cord compression. Bilateral neuroforamina narrowing. C7-T1: No disc herniation. No neuroforamina stenosis. No prevertebral compartment hematoma, mass or fluid collection. Flow-void signal within the main vessels is normal. Right vertebral artery is dominant. MR/MR cervical spine wo con IMPRESSION: Prominent central canal of the spinal cord versus less likely hydrosyringomyelia, C6-7. Cervical spondylosis C4-5 C5-6 and C6-7 levels without cord compression. No Chiari malformation. Consider Klippel-Feil syndrome.. Electronically signed by: Pierre Deleon MD 07/28/2024 03:28 PM EDT [facility] Medical History (Updated 07/30/24 @ 09:53 by Jessica Iraheta, [facility]) Headache Thyroid disease Surgical History (Updated 11/05/23 @ 10:55 by Linh Hollins [place]) [place] teeth removed Family History (Updated 11/05/23 @ 10:58 by Linh Hollins MA) Sister Asthma Maternal Grandmother Diabetes Thyroid disorder Mother Thyroid disorder Father Prostate cancer Social History Housing: House Patient Tobacco Use Status: Never used Tobacco e-Cigarette/Vaping Use: Never Used Second Hand Smoke Exposure: No service: No Current occupational status: employed 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 Alvaro Durand, Anai Cain, Adan Martinez and colleagues, with an educational earline from [employer]. Physical exam (Primary Care) Tobacco/Smoking Status: Tobacco use Status Tobacco use date assessed 07/30/24 07/30/24 09:33 Patient Tobacco Use Status Never used Tobacco 07/30/24 07:26 e-Cigarette/Vaping Use Never Used 07/30/24 07:26 Thrive Assessment: Date of Thrive Assessment Date Thrive assessed 02/14/24 07/30/24 07:26 Telehealth Telehealth Telehealth Platform: Sembraire Location of provider rendering services: practice address Location of patient: address on file Patient Identification confirmed using: Name, : Yes Telehealth method: voice only Patient verbally consented to treatment: Yes Patient verbally consented to billing insurance company: Yes Patient informed of any privacy concerns related to visit: Yes Minutes spent on Phone/Video with Pt.: 7 Coding Level of Care Code Tele Est Pt Level 3 (46589) Complex EM visit Add On G2211 Diagnoses Cervical spinal stenosis M48.02 Assessment & Plan Assessment & Plan (1) Cervical spinal stenosis: Comment: MRI 07/2024 Prominent central canal of the spinal cord versus less likely hydrosyringomyelia, C6-7. Cervical spondylosis C4-5 C5-6 and C6-7 levels without cord compression. No Chiari malformation. Consider Klippel-Feil syndrome.. Code(s): M48.02 - Spinal stenosis, cervical region Category: Medical Plan . Orders: Referrals Neurosurgery Referral M48.02 - Spinal stenosis, cervical region Medications: Discontinued methylprednisolone (Medrol (Clive)) Discontinued Reason: Patient Completed Course PO PER PKG DIR 21 ea 0RF
--- OUTSIDE RECORDS SUMMARY | 2024-07-30 10:06 | XMS_ITS ---
Author Organization [facility] Address [address] [place] [address] Care Team Providers Care Guest Request Runner Name Role Phone Jessica Iraheta Primary Care Provider UnavailAlvaro Stone Unavailable [phone] Xu Torres Unavailable Unavailable Allergies Allergen (clinical [...] Status Risk Notes Problem Irritable bowel syndrome (15318526) Irritable bowel syndrome (K58.9) Active confirmed Problem Gastroesophageal reflux disease (970283830) GERD (gastroesopha geal reflux disease) (K21.9) Active confirmed Problem Family History of Cancer of Colon (Situation) (794562020) Family history of colon cancer (Z80.0) Active confirmed Problem Hiatal hernia (34856809) Hiatal hernia (K44.9) Active confirmed Vital Signs Blood pressure systolic 111 mm Hg 06/16/19 25 Blood pressure diastolic 111 mm Hg 025 Height 65 in 06/15/2024 Weight 161 lbs 06/15/2024 BMI 26.79 kg/m2 06/15/2024 Procedures Procedure Date Ordered Date Performed Result Body Sit e UPPER GI ENDOSCOPY 06/15/2024 N/A COLONOSCOPY 06/15/2024 N/A Encounters Encounter Location Date Provider Diagnosis [facility] [address] [facility] [address] [place] [address] 06/15/2024 Alvaro Kim Irritable bowel syndrome K58.9 [...] Provider Name:Alvaro Kim , 10/01/2024 09:00:00 AM, [address] [place] [address] , [place], [place], [phone], Progress Notes * VELVET SMITHDOB:1979 (44 yo F)Acc No.[id number]:06/15/2024 Progress Notes Patient:?VELVET SMITH Provider:?Alvaro Kim MD :1980???Age:44 Y???Sex:Female D ate:06/15/2024 Address:[place], [id number] Pcp:Jessica Iraheta Subjective: * Chief Complaints: * [...] cancer screening?Procedure: COLONOSCOPY* with MAC * Procedure Codes:?20308 UPPR GI ENDOSCOPY, [id number] DIAGNOSTIC [id number] TOBACCO [id number] BP SCR NOT PRFRM REC REASON NOS * Follow Up:?prn * * Sign off status: Completed true * Provider:?Alvaro Kim MD Date:? 025 Generated for Verito nichole/Aicha/eTransmitting on:?07/30/2024 10:06 AM EDT
--- OUTSIDE RECORDS SUMMARY | 2024-07-30 10:06 | XMS_ITS | Patient Health Record ---
Author Organization [facility] Address [address] [place] [address] Care Team Providers Care Commission Sales Associate Name Role Phone Jessica Iraheta Primary Care Provider Alvaro Nunn Unavailable [phone] Xu Torres Unavailable Unavailable Allergies Allergen (clinical [...] Status Risk Notes Problem Irritable bowel syndrome (07090756) Irritable bowel syndrome (K58.9) Active confirmed Problem Family History of Cancer of Colon (Situation) (566704149) Family history of colon cancer (Z80.0) Active confirmed Problem Hiatal hernia (27720227) Hiatal hernia (K44.9) Active confirmed Problem Gastroesophageal reflux disease (048385964) GERD (gastroesopha geal reflux disease) (K21.9) Active confirmed Vital Signs Blood pressure diastolic 111 mm Hg 06/15/2024 Height 65 in 06/15/2024 Blood pressure systolic 111 mm Hg 06/15/2024 Weight 161 lbs 06/15/2024 BMI 26.79 kg/m2 06/15/2024 Procedures Procedure Date Ordered Date Performed Result Body Sit e UPPER GI ENDOSCOPY 06/15/2024 N/A COLONOSCOPY 06/15/2024 N/A Encounters Encounter Location Date Provider Diagnosis [facility] [address] [facility] [address] [place] [address] 06/15/2024 Alvaro Kim Irritable bowel syndrome K58.9 [...] Name:Alvaro Kim , 10/01/2024 09:00:00 AM, [address] [facility] , [place], [place], [phone], Insurance Providers Payer Name Payer Address Payer Phone Subscriber Number Group Number Insured Name Patient Relationship to Insured Coverage Start Date Coverage End Date [facility] Insurance ([facility]) [address] [place] [address] [phone] [id number] SARAH VELVET Self - patient is [...] lower esophageal sphincter did relax normally Denies [place],Lung disease,renal dise ase In [facility] [place] for 3 days for GI issues--abdominal [...]
--- OUTSIDE RECORDS SUMMARY | 2024-07-30 10:06 | XMS_ITS | Clinical Summary ---
Author Organization [facility] Address [address] [place] [address] Care Team Providers Care Assembler Tester Name Role Phone Unavailable Primary Care Provider [...] FOR DIARRHEA 30 tablet 1 11/17/2022 Active Mhmqsediqo-DUXT-Qmlado ne 50-300-40 MG CAPS TAKE 1 CAPSULE [...]
== END 2024-07-30 09:56 | disposition home or self-care (01) ==
LOC: HO.HMCFM 09:33
PROVIDERS: PCP Nurse Practitioner Family; Visit Provider Nurse Practitioner Family
DX: M48.02 Spinal stenosis, cervical region (principal)

== ENCOUNTER → 2024-07-30 09:33 | Outpatient (BNVA) | payer OTHER, SELFPAY | PROVIDERS: PCP Nurse Practitioner Family; Visit Provider Nurse Practitioner Family | DX: Z13.89 Encounter for screening for other disorder (principal) ==

== ENCOUNTER 2024-08-04 09:19 | Outpatient (AMB) | payer OTHER, SELFPAY ==
--- NOTE | 2024-08-04 09:24 | MHC.OFFVIS ---
Intake Visit Reasons: OV- Cervical Spine MRI review Intake Note: Vera is a 44 year old female who presents with complaints of progressively worsening neck pain which radiates down her right arm. The patient describes her pain as sharp in nature. The patient states that at times the pain ?shoots? into her right arm. Her symptoms have gotten worse over the last year in spite of continued non operative treatments. She also reports intermittent pain along the lateral aspect of her right shoulder. She reports intermittent weakness in her right upper extremity. She has failed the last 6 weeks of conservative treatment which have included Tylenol, anti-inflammatory medicines, a Medrol Dosepak, a home exercise program and physical therapy exercises. She has had a cortisone injection given into her right shoulder which gave her minimal relief. MR/MR cervical spine wo con IMPRESSION: Prominent central canal of the spinal cord versus less likely hydrosyringomyelia, C6-7. Cervical spondylosis C4-5 C5-6 and C6-7 levels without cord compression. No Chiari malformation. Consider Klippel-Feil syndrome.. Electronically signed by: Pierre Deleon MD 07/28/2024 03:28 PM EDT RP Allergies butorphanol [From Stadol] Allergy (Mild, Verified 08/04/24 09:26) Nausea and Vomiting animal dander Allergy (Unknown, Verified 08/04/24 09:26) SWOLLEN EYES morphine [MORPHINE] Allergy (Unknown, Verified 08/04/24 09:26) NAUSEA & VOMITING, nausea and vomiting lactose [LACTOSE] Adverse Reaction (Intermediate, Verified 08/04/24 09:26) DIARRHEA Medication List - Last Reconciled 08/04/24 by Ricki Meyer MD escitalopram oxalate 20 mg PO DAILY fluticasone propionate 50 mcg/actuation 1 spray intranasal BID levothyroxine 25 mcg PO DAILY omeprazole 20 mg PO DAILY [facility] Medical History (Updated 07/30/24 @ 09:53 [facility] Headache Thyroid disease Surgical History (Updated 11/05/23 @ 10:55 by Linh Hollins MA) [place] teeth removed Family History (Updated 11/05/23 @ 10:58 by Linh Hollins MA) Sister Asthma Maternal Grandmother Diabetes Thyroid disorder Mother Thyroid disorder Father Prostate cancer Social History Housing: House Patient Tobacco Use Status: Never used Tobacco e-Cigarette/Vaping Use: Never Used Second Hand Smoke Exposure: No service: No 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 Assessment & Plan Assessment & Plan (1) Neck pain, chronic: Code(s): M54.2 - Cervicalgia; G89.29 - Other chronic pain Category: Medical Plan Ms. Hazel presents with neck pain which radiates into her right arm of unclear etiology. Thus, I will have the patient evaluated in our neurosurgery department. She will contact me prior to that appointment should her symptoms worsen in any way. Feel free to call me at any time should questions regarding her orthopedic management arise. I spent 22 minutes in reviewing the patient's records and imaging studies, seeing the patient and documenting in the medical record. Orders: Referrals Neuro Spine Referral G89.29 - Other chronic pain, M54.2 - Cervicalgia Coding Level of Care Code Est Pt Level 3 (19941) Complex EM visit Add On G2211 Diagnoses Neck pain, chronic M54.2; G89.29
--- OUTSIDE RECORDS SUMMARY | 2024-08-04 10:14 | XMS_ITS | Clinical Summary ---
Author Organization [facility] Address [address] [place] [address] Care Team Providers Care Brewery Cellar Worker Name Role Phone Unavailable Primary Care Provider [...] FOR DIARRHEA 30 tablet 1 11/17/2022 Active Hrwxzeivkd-HKSE-Fvdkwx ne 50-300-40 MG CAPS TAKE 1 CAPSULE [...]
--- OUTSIDE RECORDS SUMMARY | 2024-08-04 10:14 | XMS_ITS | Patient Health Record ---
Author Organization [facility] Address [address] [place] [address] Care Team Providers Care Staff Mechanical Engineer Name Role Phone Jessica Iraheta Primary Care Provider Alvaro Nunn Unavailable [phone] Xu Torres Unavailable Unavailable Allergies Allergen (clinical [...] Status Risk Notes Problem Irritable bowel syndrome (44508410) Irritable bowel syndrome (K58.9) Active confirmed Problem Family History of Cancer of Colon (Situation) (751106974) Family history of colon cancer (Z80.0) Active confirmed Problem Hiatal hernia (99712534) Hiatal hernia (K44.9) Active confirmed Problem Gastroesophageal reflux disease (237029294) GERD (gastroesopha geal reflux disease) (K21.9) Active confirmed Vital Signs Blood pressure diastolic 111 mm Hg 06/15/2024 Height 65 in 06/15/2024 Blood pressure systolic 111 mm Hg 06/15/2024 Weight 161 lbs 06/15/2024 BMI 26.79 kg/m2 06/15/2024 Procedures Procedure Date Ordered Date Performed Result Body Sit e UPPER GI ENDOSCOPY 06/15/2024 N/A COLONOSCOPY 06/15/2024 N/A Encounters Encounter Location Date Provider Diagnosis [facility] [address] [facility] [address] [place] [address] 06/15/2024 Alvaro Kim Irritable bowel syndrome K58.9 [...] Name:Alvaro Kim , 10/01/2024 09:00:00 AM, [address] [facility] , [place], [place], [phone], Insurance Providers Payer Name Payer Address Payer Phone Subscriber Number Group Number Insured Name Patient Relationship to Insured Coverage Start Date Coverage End Date [facility] Insurance ([facility]ly [facility]) [address] [place] [address] [id number] SARAH VELVET Self - patient is [...] lower esophageal sphincter did relax normally Denies [place],DM,CVA,Lung disease,renal dise ase In [facility] 08/2013 for 3 days for GI issues--abdominal [...]
--- OUTSIDE RECORDS SUMMARY | 2024-08-04 10:14 | XMS_ITS ---
Author Organization [facility] Address [address] [place] [address] Care Team Providers Care Linux Systems Administrator Name Role Phone Jessica Iraheta Primary Care Provider UnavailAlvaro Stone Unavailable [phone] Xu Torres Unavailable Unavailable Allergies Allergen (clinical [...] Status Risk Notes Problem Irritable bowel syndrome (35722370) Irritable bowel syndrome (K58.9) Active confirmed Problem Gastroesophageal reflux disease (568289114) GERD (gastroesopha geal reflux disease) (K21.9) Active confirmed Problem Family History of Cancer of Colon (Situation) (778735650) Family history of colon cancer (Z80.0) Active confirmed Problem Hiatal hernia (00261591) Hiatal hernia (K44.9) Active confirmed Vital Signs Blood pressure systolic 111 mm Hg 06/16/19 25 Blood pressure diastolic 111 mm Hg 025 Height 65 in 06/15/2024 Weight 161 lbs 06/15/2024 BMI 26.79 kg/m2 06/15/2024 Procedures Procedure Date Ordered Date Performed Result Body Sit e UPPER GI ENDOSCOPY 06/15/2024 N/A COLONOSCOPY 06/15/2024 N/A Encounters Encounter Location Date Provider Diagnosis [facility] [address] [facility] [address] [place] [address] 06/15/2024 Alvaro Kim Irritable bowel syndrome K58.9 [...] Provider Name:Alvaro Kim , 10/01/2024 09:00:00 AM, [address] [place] [address] , [place], [phone], Progress Notes * VELVET SMITHDOB:1979 (44 yo F)Acc No.[id number]:06/15/2024 Progress Notes Patient:?VELVET SMITH Provider:?Alvaro Kim MD :1980???Age:44 Y???Sex:Female D ate:06/15/2024 Address:[address], [id number] Pcp:Jessica Iraheta Subjective: * Chief Complaints: * [...] cancer screening?Procedure: COLONOSCOPY* with MAC * Procedure Codes:?66170 UPPR GI ENDOSCOPY, [id number] DIAGNOSTIC [id number] TOBACCO NON-[id number] BP SCR NOT PRFRM REC REASON NOS * Follow Up:?prn * * Sign off status: Completed true * Provider:?Alvaro Kim MD Date:? 025 Generated for Verito nichole/Aicha/eTransmitting on:?08/04/2024 10:13 AM EDT
== END 2024-08-04 09:44 | disposition home or self-care (01) ==
LOC: HO.HOS 09:20
PROVIDERS: PCP Nurse Practitioner Family; Visit Provider Orthopaedic Surgery
DX: M54.2 Cervicalgia (principal); G89.29 Other chronic pain
CPT/HCPCS: 99213

== ENCOUNTER → 2024-08-04 09:19 | Outpatient (BNVA) | payer OTHER, SELFPAY | PROVIDERS: PCP Nurse Practitioner Family; Visit Provider Orthopaedic Surgery ==

== ENCOUNTER 2024-08-16 14:58 | Outpatient (AMB) | payer OTHER, SELFPAY ==
--- NOTE | 2024-08-16 15:01 | HO.SPINEOV ---
Vital Signs 08/16/24 15:06 Height 5 ft 5 in Weight 160 lb BMI 26.6 Intake Visit Reasons: cervical stenosis Intake Note: Ms. Hazel is here today c/o shoulder pain. Interstate Planner Required: No Allergies butorphanol [From Stadol] Allergy (Mild, Verified 08/16/24 15:06) Nausea and Vomiting animal dander Allergy (Unknown, Verified 08/16/24 15:06) SWOLLEN EYES morphine [MORPHINE] Allergy (Unknown, Verified 08/16/24 15:06) NAUSEA & VOMITING, nausea and vomiting lactose [LACTOSE] Adverse Reaction (Intermediate, Verified 08/16/24 15:06) DIARRHEA Assessment & Plan Assessment & Plan (1) Right shoulder pain: Code(s): M25.511 - Pain in right shoulder Category: Medical Qualifiers: Chronicity: acute Qualified Code(s): M25.511 - Pain in right shoulder Plan Dear colleague, Thank you for referring Vera to our office today. She is a pleasant 44 year old female who comes in today with a chief complaint of right shoulder pain. She reports this has been ongoing since about May of 2023 without any specific inciting incident. She denies any shooting radicular pains down her upper extremities. She reports that her pain is fairly well localized to the right shoulder, and states that previously she has had right-sided shoulder injections completed by our colleague Dr. Meyer which provided symptom relief for about 2 weeks until she tried to get a therapeutic massage on the right shoulder, which exacerbated her pain once more. She states that lifting objects above her head worsens her right shoulder pain, and is unable to identify any specific alleviating factors aside from rest and use avoidance. She denies any issues with ambulation or balance. She denies any issues with dexterity, such as writing with a pencil, zipping zippers or buttoning up buttons. 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 She denies any troubles with bowel/bladder control. She is currently taking Tylenol, ibuprofen to help alleviate some of her pain. She has been to physical therapy in the past, but not specifically for her shoulder per her report. PMH: Chronic neck pain, right-sided shoulder impingement, migraines, GERD, hypothyroidism, generalized anxiety disorder, irritable bowel syndrome. Social hx: The patient does not smoke, reports no substance use. Medications: See [employer] list. Allergies: Butorphanol, animal dander, morphine, lactose. Physical exam: The patient has 5/5 strength in her upper and lower extremities. She ambulates well without any assistive devices. Her gait is non spastic and nonantalgic. She has some slight hyperreflexia of her bilateral patella, but otherwise her reflexes are 2+ intact. No significant sensational deficits on examination. (-) Nunes's, (-) clonus, (-) bilateral straight leg raise, (-) Babinski's. 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 This can be seen most prominently behind the vertebral body of C7. Impression: Vera is a pleasant 44-year-old female comes in today with a chief complaint of right shoulder pain that has been ongoing for about a year. She denies any known inciting incident for the pain. She seems to previously had fairly good relief from injections, although it only lasted about 2 weeks. I did review her shoulder MRI report which states that she has some mild tendinopathy, but no obvious rotator cuff tear or other injury. I do not believe that her right shoulder pain is coming from the auto fusion of C3-4, or the syringomyelia noted in the cervical spine. This is likely been there for a very long time in his most likely asymptomatic in the setting of a benign physical exam. The hyperreflexia observed on examination is likely secondary to her SSRI use which at times can cause hyperreflexia. I encouraged her to continue follow up with Dr. Meyer, and to come back and see us if she develops any worsening symptoms such as shooting pains down her upper extremity, or issues with dexterity/balance/bowel/bladder. Thank you for allowing us to care for your patient. The total time spent with this visit with this patient was 45 minutes reviewing history, physical exam, MRI imaging review, and implementation of treatment plan or further diagnostic testing Christian Louis MD,PhD [facility] Coding Level of Care Code New Pt Level 4 (81261) Diagnoses Acute pain of right shoulder M25.511 Chronicity: acute
[2024-08-16 15:06] VITALS: BMI 26.6
--- OUTSIDE RECORDS SUMMARY | 2024-08-16 16:33 | XMS_ITS | Clinical Summary ---
Author Organization [facility] Address [address] [place] [address] Care Team Providers Care President Consumer Electronics Company Name Role Phone Unavailable Primary Care Provider [...] FOR DIARRHEA 30 tablet 1 11/17/2022 Active Dtwvphbaoy-FXXC-Ttslsb ne 50-300-40 MG CAPS TAKE 1 CAPSULE [...]
== END 2024-08-16 15:51 | disposition home or self-care (01) ==
LOC: HO.HNS 14:59
PROVIDERS: PCP Nurse Practitioner Family; Referring Provider Nurse Practitioner Family; Visit Provider Physician Assistant
DX: M25.511 Pain in right shoulder (principal)
CPT/HCPCS: 99204

== ENCOUNTER 2024-09-02 07:46 | Outpatient (AMB) | payer OTHER, SELFPAY ==
--- OUTSIDE RECORDS SUMMARY | 2024-09-02 07:48 | XMS_ITS ---
Author Organization [facility] Address [address] [place] [address] Care Team Providers Care Craft Artist Name Role Phone Jessica Iraheta Primary Care Provider UnavailAlvaro Stone Unavailable [phone] Xu Torres Unavailable Unavailable Encounters Encounter Location Date Provider Diagnosis [facility] [address] [place] [address] 08/23/2024 Alvaro Kim Plan Of Treatment Next Appt Details Provider Name:Alvaro Kim , 10/01/2024 09:00:00 AM, [address] [place] [address] , [place], [place], [phone], Progress Notes * VELVET SMITHDOB:1979 (44 yo F)Acc No.[id number]:08/23/2024 Patient:?VELVET SMITH :1980???Age:44 Y???Sex:Female [place] [address] * true * Date:? Generated for Printi ng/Fakourtneyg/eTransmitting on:?09/02/2024 07:48 AM EDT
--- OUTSIDE RECORDS SUMMARY | 2024-09-02 07:48 | XMS_ITS | Clinical Summary ---
Author Organization [facility] Address [address] [place] [address] Care Team Providers Care Data Quality Consultant Name Role Phone Unavailable Primary Care Provider [...] FOR DIARRHEA 30 tablet 1 11/17/2022 Active Thnkuzocad-YNTI-Srvrwg ne 50-300-40 MG CAPS TAKE 1 CAPSULE [...]
--- OUTSIDE RECORDS SUMMARY | 2024-09-02 07:49 | XMS_ITS | Continuity of Care Document ---
Author Organization [place] - [facility], [facility] Address [address] [address] Assessment No assessment recorded. Plan of Treatment Reminders Order Date Submit Date Provider Last Modified By Organization Details Last Modified Time Details Appointments [place] Fitting Follow Up (60) 2024 04:00P M NAA MARX Not available Not available Not available Lab None recorded . Referral None recorded . Procedures None recorded . Surgeries None recorded . Imaging None recorded . Medication Orders None recorded . Patient TargetsNo targets recorded. Patient InstructionsNo instructions recorded. Reason for Referral None Reported. Problems Name Problem SNOMED Code Status Onset Date Resolution Date Notes Provider Name and Address Organization Details Recorded Time Sensorineural hearing loss of bilateral ears [id number] Active 2024 NAA MARX 100 [facility], [address] [place] [address], [id number] [facility] - [facility] 5 09:35:25 Problem Notes None recorded. Medical Equipment [...] SNOMED-CT Code Diagnosis ICD10 Code Diagnosis Note [id number] ANNE-MARIE BUCKNER AUD [place] [facility] [address] [place] [address] 08/06/2024 08:51:08 08/06/2024 13:13:54 Sensorineural hearing loss of bilateral ears 302243342 H90.3 [id number] ANNE-MARIE BUCKNER AUD [place] [facility] [place] [address] [place] [address] 08/17/2024 14:36:15 08/18/2024 09:15:07 Sensorineural hearing loss of bilateral ears 450920607 H90.3 [id number] ANNE-MARIE BUCKNER, [place]UD [place] [facility] [place] [address] [place] [address] 08/31/2024 15:56:32 09/01/2024 10:39:00 Sensorineural hearing loss of bilateral ears 576992041 H90.3 Health Concerns Section Related Observation LastModified by Organization Detai ls LastModified Time None Recorded Concern Status LastModified by Organization Details LastModified Time None Recorded Payers Encounter Date Sequence Insurance Name Policy Number Policy Linares Covered Member ID Linares Member ID Guarantor Name 08/31/2024 1 [facility] INDNITY PL[facility] [id number] Vera Hazel [id number] Vera Hazel Notes Date Note Type Note Provider Name and Address Organization Details Recorded Time 08/31/2024 text/html Concerns: doing well with the hearing aids. Feels the left ear is clogged and echoic with her own voice. Adjustments: changed from an 8 doublebass to an 8 openbass in the left ear. She noticed a difference. The ears now feel equal. FU: 6 months to clean the hearing aids together or sooner if anything changes ANNE-MARIE BUCKNER, [facility] 100 [facility],[place] [address], [place], [address], [facility] - [facility] 09/01/2024 10:38:59 OBGyn Episode No OBEpisode recorded.
--- OUTSIDE RECORDS SUMMARY | 2024-09-02 07:49 | XMS_ITS | Data Portability ---
Author Organization [place] - [facility], [facility] Address [address] [address] Assessment No assessment recorded. Plan of Treatment [...] Time Sensorineural hearing loss of bilateral ears [id number] Active 2024 NAA MARX 100 [facility], [address] [place] [address], [address] [place] [address] - [facility] 5 09:35:25 Problem Notes None recorded. Medical [...] SNOMED-CT Code Diagnosis ICD10 Code Diagnosis Note [id number] NAA MARX [place] 100 [facility],[place] [address] [place] [address] 08/06/2024 08:51:08 08/06/2024 13:13:54 Sensorineural hearing loss of bilateral ears 304809076 H90.3 [id number] ANNE-MARIE BUCKNER AUD [place] 100 [facility],[place] [address] [place] [address] 08/17/2024 14:36:15 08/18/2024 09:15:07 Sensorineural hearing loss of bilateral ears 104056969 H90.3 [id number] ANNE-MARIE BUCKNER, AUD [place] 100 [facility],[place] [address] [place] [address] 08/31/2024 15:56:32 09/01/2024 10:39:00 Sensorineural hearing loss of bilateral ears 040466752 H90.3 Health Concerns Section Related Observation LastModified by Organization Detai ls LastModified Time None Recorded Concern Status LastModified by Organization Details LastModified Time None Recorded Advance Directives Directive None Recorded Payers Insurance Date Sequence Insurance Name Policy Number Policy Linares Covered Member ID Linares Member ID Guarantor Name 08/28/2024 1 [facility] INDEMNITY PLAN - [facility] [id number] Vera Hazel [id number] Vera Hazel 08/31/2024 [employer] [facility] Vera Hazel [id number] Vera Hazel Notes Date Note Type Note Provider Name and Address Organization Details Recorded Time 08/06/2024 text/html Had her hearing tested at another office. Pt is {{a* an}} {{new* experienced} } user of hearing aids. Here today due to difficulty {{ in everyday life, epecially at work. 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 Has two young boys at home and is very active.#}}Discussed type, technology levels, and manufacturers of hearing aids. Discussed her [employer] Financial benefit of $1700 per ear as a reimbursement. Type of phone: {{iphone* android (galaxy) android (off brand) no smart phone}} Ordering:{{Oticon* phonak Widex}} {{ intent1 in chroma beige#}}Land Reclamation Specialist: {{ 2-85#}}Domes: {{ 8 doublebass#}}Other: {{}} Paid today: {{ 0.00#}}Due at fitting {{ 5900#}}Total: {{ 5900#}} ANNE-MARIE BUCKNER, [facility] [address], [address], [facility] - [facility] 08/06/2024 09:36:21 08/17/2024 text/html Fit today with {{phonak oticon* wi dex}} Set at level 3 and fit to target. {{No changes made after REM. Turned down after REM for comfort. Turned down after REM for comfort to level 1.#}} Automatic adaption set. Will reach level 2 in 2 weeks. VC activated and explained. Discussed insertion/removal of devices from ears and early head start director and cleaning of devices which included changing the domes, replacing the filter, and wiping down the HAs. Patient was able to successfully insert devices into ears in office {{Connected to phone and haider. Connected to haider but not phone Connected to phone but not haider Not interested in phone connectivity Does not have a smartphone Connecte d to phone and haider. I told her about the phoen answering capabilities of the button and tap.#}}Paid {{ 5900#}} via {{card* renee check} } via {{ARG ELE*}} ANNE-MARIE BUCKNER, [facility] [address], [address], [facility] 08/17/2024 15:43:06 08/31/2024 text/html Concerns: doing well with the hearing aids. Feels the left ear is clogged and echoic with her own voice. Adjustments: changed from an 8 doublebass to an 8 openbass in the left ear. She noticed a difference. The ears now feel equal. FU: 6 months to clean the hearing aids together or sooner if anything changes ANNE-MARIE BUCKNER, AUD [address], [address], [facility] - [facility] 09/01/2024 10:38:59 OBGyn Episode No OBEpisode recorded.
--- OUTSIDE RECORDS SUMMARY | 2024-09-02 07:49 | XMS_ITS | Patient Health Record ---
Author Organization [facility] Address [address] [place] [address] Care Team Providers Care In Mold Coater Name Role Phone Jessica Iraheta Primary Care Provider Alvaro Nunn Unavailable [phone] Xu Torres Unavailable Unavailable Allergies Allergen (clinical [...] Status Risk Notes Problem Irritable bowel syndrome (K58.9) Active confirmed Problem Family History of Cancer of Colon (Situation) (765732215) Family history of colon cancer (Z80.0) Active confirmed Problem Hiatal hernia (88580390) Hiatal hernia (K44.9) Active confirmed Problem Gastroesophageal reflux disease (669972402) GERD (gastroesopha geal reflux disease) (K21.9) Active confirmed Vital Signs Blood pressure diastolic 111 mm Hg 06/15/2024 Height 65 in 06/15/2024 Blood pressure systolic 111 mm Hg 06/15/2024 Weight 161 lbs 06/15/2024 BMI 26.79 kg/m2 06/15/2024 Procedures Procedure Date Ordered Date Performed Result Body Sit e UPPER GI ENDOSCOPY 06/15/2024 N/A COLONOSCOPY 06/15/2024 N/A Encounters Encounter Location Date Provider Diagnosis [facility] [address] [place] [address] 06/15/2024 Alvaro Kim Irritable bowel syndrome K58.9 ; GERD (gastroesophageal reflux disease) K21.9 ; Family history of colon cancer Z80.0 ; Hiatal hernia K44.9 and Colon cancer screening Z12.11 [facility] [address] [place] [address] 08/23/2024 Alvaro Kim Assessments Encounter Date Diagnosis (ICD Code) Assessment [...] Name:Alvaro Kim , 10/01/2024 09:00:00 AM, [address] [facility] , [place], [place], [phone], Insurance Providers Payer Name Payer Address Payer Phone Subscriber Number Group Number Insured Name Patient Relationship to Insured Coverage Start Date Coverage End Date [facility] ([facility] [address] [place] [address] [id number] VELVET SMITH Self - patient is [...] lower esophageal sphincter did relax normally Denies VT,DM,CVA,Lung disease,renal dise ase In [facility] 08/2013 for 3 days for GI issues--abdominal [...]
--- OUTSIDE RECORDS SUMMARY | 2024-09-02 07:49 | XMS_ITS ---
Author Organization [facility] Address [address] [place] [address] Care Team Providers Care Director Global Market Research Name Role Phone Jessica Iraheta Primary Care Provider UnavailAlvaro Stone Unavailable [phone] Xu Torres Unavailable Unavailable Allergies Allergen (clinical [...] Status Risk Notes Problem Irritable bowel syndrome (99749624) Irritable bowel syndrome (K58.9) Active confirmed Problem Gastroesophageal reflux disease (090451621) GERD (gastroesopha geal reflux disease) (K21.9) Active confirmed Problem Family History of Cancer of Colon (Situation) (214772504) Family history of colon cancer (Z80.0) Active confirmed Problem Hiatal hernia (87716472) Hiatal hernia (K44.9) Active confirmed Vital Signs Blood pressure systolic 111 mm Hg 06/16/19 25 Blood pressure diastolic 111 mm Hg 025 Height 65 in 06/15/2024 Weight 161 lbs 06/15/2024 BMI 26.79 kg/m2 06/15/2024 Procedures Procedure Date Ordered Date Performed Result Body Sit e UPPER GI ENDOSCOPY 06/15/2024 N/A COLONOSCOPY 06/15/2024 N/A Encounters Encounter Location Date Provider Diagnosis [facility] [address] [facility] [address] [place] [phone] 06/15/2024 Alvaro Kim Irritable bowel syndrome K58.9 [...] Name:Alvaro Kim , 10/01/2024 09:00:00 AM, [address] [place] [address] , [place], [place], [phone], Progress Notes * VELVET SMITHDOB:1979 (44 yo F)Acc No.[id number]:06/15/2024 Progress Notes Patient:?VELVET SMITH Provider:?Alvaro Kim MD :1980???Age:44 Y???Sex:Female D ate:06/15/2024 Address:[place], [phone] Pcp:Jessica Iraheta Subjective: * Chief Complaints: * [...] cancer screening?Procedure: COLONOSCOPY* with MAC * Procedure Codes:?53286 UPPR GI ENDOSCOPY, [id number] DIAGNOSTIC [id number] TOBACCO NON-HCCNR1281 BP SCR NOT PRFRM REC REASON NOS * Follow Up:?prn * * Sign off status: Completed true * Provider:?Alvaro Kim MD Date:? 025 Generated for Verito nichole/Aicha/eTransmitting on:?09/02/2024 07:48 AM EDT
[2024-09-02 07:53] VITALS: BMI 26.6
--- NOTE | 2024-09-02 07:53 | MHC.OFFVIS ---
Vital Signs 09/02/24 07:53 Height 5 ft 5 in Weight 160 lb BMI 26.6 Intake Visit Reasons: OV- Right shoulder inj req, last inj 05/06/24 Intake Note: Vera is a 44 year old female who presents today for follow up pf her right shoulder pain. Patient was given a right shoulder injection on 05/06/24. Patient states injection provided relief and wishes to repeat it today. She continues with her home stretching program. Allergies butorphanol [From Stadol] Allergy (Mild, Verified 09/02/24 07:54) Nausea and Vomiting animal dander Allergy (Unknown, Verified 09/02/24 07:54) SWOLLEN EYES morphine [MORPHINE] Allergy (Unknown, Verified 09/02/24 07:54) NAUSEA & VOMITING, nausea and vomiting lactose [LACTOSE] Adverse Reaction (Intermediate, Verified 09/02/24 07:54) DIARRHEA Medication List - Last Reconciled 09/02/24 by Ricki Meyer MD escitalopram oxalate 20 mg PO DAILY fluticasone propionate 50 mcg/actuation 1 spray intranasal BID levothyroxine 25 mcg PO DAILY omeprazole 20 mg PO DAILY PFSH Medical History (Updated 07/30/24 @ 09:53 by Jessica Iraheta, [facility]) Headache Thyroid disease Surgical History (Updated 11/05/23 @ 10:55 by Linh Hollins MA) [place] teeth removed Family History (Updated 11/05/23 @ 10:58 by Linh Hollins MA) Sister Asthma Maternal Grandmother Diabetes Thyroid disorder Mother Thyroid disorder Father Prostate cancer Social History Housing: House Patient Tobacco Use Status: Never used Tobacco e-Cigarette/Vaping Use: Never Used Second Hand Smoke Exposure: No service: No Current occupational status: employed 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 Current occupational exposures/hazards: No Cognitive needs: No Hearing needs: No Vision needs: Yes Physical Exam Vital Signs: BMI result Body Mass Index 26.6 Const Other: Well-nourished well-developed very friendly female awake alert and oriented x3 in no acute distress Extrem Other: Bilateral upper extremity examination shows good capillary refill, no skin lesions noted, normal sensation light touch Right shoulder examination shows slightly decreased range of motion when compared to her left shoulder, positive impingement signs, 5/5 strength with supraspinatus testing, no instability Office Procedures AMB Joint Injection/Aspiration Joint Injection/Aspiration Primary Site: right shoulder Prep: site was prepped using aseptic technique Injected: 40 mg of, DepoMedrol and 1% plain lidocaine Procedure: The patient tolerated the procedure well Coding 78730 - Large joint Procedure code (CPT) selection complete Assessment & Plan Assessment & Plan (1) Impingement of right shoulder: Code(s): M25.811 - Other specified joint disorders, right shoulder Category: Medical Plan Ms. Hazel presents with right shoulder pain due to impingement syndrome. The risks and benefits of a right shoulder cortisone injection were discussed at length with the patient. The patient wished to proceed she tolerated the injection well. She will continue with her home exercise program. She will contact me prior to her follow-up appointment in 3 months should any questions or concerns arise. Feel free to call me at any time should questions regarding her orthopedic management arise. I spent 20 minutes in reviewing the patient's records and imaging studies, seeing the patient and documenting in the medical record. Orders: Orders AMB Joint Injection/Aspiration Today M25.811 - Other specified joint disorders, right shoulder Coding Level of Care Code Est Pt Level 3 (94649) Complex EM visit Add On G2211 Diagnoses Impingement of right shoulder M25.811 CPT Codes Coding - 27474 Large joint: 38101 - Large joint ([id number])
== END 2024-09-02 08:12 | disposition home or self-care (01) ==
LOC: HO.HOS 07:47
PROVIDERS: PCP Nurse Practitioner Family; Visit Provider Orthopaedic Surgery
DX: M25.811 Other specified joint disorders, right shoulder (principal)
CPT/HCPCS: 20610; 99213

== ENCOUNTER → 2024-09-02 07:46 | Outpatient (BNVA) | payer OTHER, SELFPAY | PROVIDERS: PCP Nurse Practitioner Family; Visit Provider Orthopaedic Surgery | DX: M25.811 Other specified joint disorders, right shoulder (principal) | CPT/HCPCS: 20610; J1010; J2003 ==

== ENCOUNTER 2024-10-01 07:24 | Day surgery (SDC) | payer SELFPAY ==
--- OUTSIDE RECORDS SUMMARY | 2024-08-16 07:51 | XMS_ITS | Patient Health Record ---
Author Organization [facility] Address [address] [place] [address] Care Team Providers Care Hogshead Stripper Name Role Phone Jessica Iraheta Primary Care Provider Alvaro Nunn Unavailable [phone] Xu Torres Unavailable Unavailable Allergies Allergen (clinical [...] Status Risk Notes Problem Irritable bowel syndrome (63125914) Irritable bowel syndrome (K58.9) Active confirmed Problem Family History of Cancer of Colon (Situation) (360986701) Family history of colon cancer (Z80.0) Active confirmed Problem Hiatal hernia (96792494) Hiatal hernia (K44.9) Active confirmed Problem Gastroesophageal reflux disease (293682333) GERD (gastroesopha geal reflux disease) (K21.9) Active confirmed Vital Signs Blood pressure diastolic 111 mm Hg 06/15/2024 Height 65 in 06/15/2024 Blood pressure systolic 111 mm Hg 06/15/2024 Weight 161 lbs 06/15/2024 BMI 26.79 kg/m2 06/15/2024 Procedures Procedure Date Ordered Date Performed Result Body Sit e UPPER GI ENDOSCOPY 06/15/2024 N/A COLONOSCOPY 06/15/2024 N/A Encounters Encounter Location Date Provider Diagnosis [facility] [address] [facility] [address] [place] [address] 06/15/2024 Alvaro Kim Irritable bowel syndrome K58.9 [...] Name:Alvaro Kim , 10/01/2024 09:00:00 AM, [address] [facility] , [place], [place], [phone], Insurance Providers Payer Name Payer Address Payer Phone Subscriber Number Group Number Insured Name Patient Relationship to Insured Coverage Start Date Coverage End Date [facility] Insurance ([facility]) [address] [place] [address] [phone] [id number] SARAH VELVET Self - patient is [...] lower esophageal sphincter did relax normally Denies [place],DM,CVA,Lung disease,renal dise ase In [facility] 08/2013 for 3 days for [...]
--- OUTSIDE RECORDS SUMMARY | 2024-08-16 07:51 | XMS_ITS ---
Author Organization [facility] Address [address] [place] [address] Care Team Providers Care Club Attendant Name Role Phone Jessica Iraheta Primary Care Provider UnavailAlvaro Stone Unavailable [phone] Xu Torres Unavailable Unavailable Allergies Allergen (clinical [...] Status Risk Notes Problem Irritable bowel syndrome (28694519) Irritable bowel syndrome (K58.9) Active confirmed Problem GERD (gastroesophag eal reflux disease) (K21.9) Active confirmed Problem Family History of Cancer of Colon (Situation) (015569335) Family history of colon cancer (Z80.0) Active confirmed Problem Hiatal hernia (67071687) Hiatal hernia (K44.9) Active confirmed Vital Signs Blood pressure systolic 111 mm Hg 06/16/19 25 Blood pressure diastolic 111 mm Hg 025 Height 65 in 06/15/2024 Weight 161 lbs 06/15/2024 BMI 26.79 kg/m2 06/15/2024 Procedures Procedure Date Ordered Date Performed Result Body Sit e UPPER GI ENDOSCOPY 06/15/2024 N/A COLONOSCOPY 06/15/2024 N/A Encounters Encounter Location Date Provider Diagnosis [facility] [address] [facility] [address] [address] [place] [address] 06/15/2024 Alvaro Kim Irritable bowel syndrome K58.9 [...] Provider Name:Alvaro Kim , 10/01/2024 09:00:00 AM, [address] [place] [address] , [place], [place], [phone], Progress Notes * VELVET SMITHDOB:1979 (44 yo F)Acc No.[id number]:06/15/2024 Progress Notes Patient:?VELVET SMITH Provider:?Alvaro Kim MD :1980???Age:44 Y???Sex:Female D ate:06/15/2024 Address:[address] [place], [id number] Pcp:Jessica Iraheta Subjective: * Chief Complaints: * ???Patient presents today fo r DIARRHEA, PERUMBILICAL PAIN, IBS * Medical History:? * Surgical History:?wisdom arin th extraction &C 2020trigger thumb right hand -section * Hospitalization/Major [...] cancer screening?Procedure: COLONOSCOPY* with MAC * Procedure Codes:?34041 UPPR GI ENDOSCOPY, [id number] DIAGNOSTIC [id number] TOBACCO NON-FCQUI7205 BP SCR NOT PRFRM REC REASON NOS * Follow Up:?prn * * Sign off status: Completed true * Provider:?Alvaro Kim MD Date:? 025 Generated for Verito nichole/Aicha/eTransmitting on:?08/16/2024 07:51 AM EDT
--- OUTSIDE RECORDS SUMMARY | 2024-08-16 07:51 | XMS_ITS | Clinical Summary ---
Author Organization [facility] Address [address] [place] [address] Care Team Providers Care Department Store Door Greeter Name Role Phone Unavailable Primary Care Provider [...] FOR DIARRHEA 30 tablet 1 11/17/2022 Active Rbxvaunout-TUYB-Inmahs ne 50-300-40 MG CAPS TAKE 1 CAPSULE [...]
--- OUTSIDE RECORDS SUMMARY | 2024-08-16 07:52 | XMS_ITS | Data Portability ---
Author Organization [place] [facility] Address [address] [address] Assessment No assessment recorded. Plan of Treatment Reminders Order Date Submit Date Provider Last Modified By Organization Details Last Modified Time Details Appointments [facility] Flexible Appointme nt 2024 03:00P M [facility] Not available Not available Not available [facility] Fitting Follow Up (60) 2024 04:00P M NAA MARX Not available Not available Not available Lab None recorded. Referral None recorded. Procedures None recorded. Surgeries None recorded. Imaging None recorded. Medication Orders None recorded. Patient TargetsNo targets recorded. Patient InstructionsNo instructions recorded. Reason for Referral None Reported. Problems Name Problem SNOMED Code Status Onset Date Resolution Date Notes Provider Name and Address Organization Details Recorded Time Sensorineural hearing loss of bilateral ears 393891506 Active [address] [facility], [address] [place] [address], [phone] [facility] 09:35:25 Problem Notes None recorded. Medical Equipment None Reported. Medications Name Sig Start Date Stop Date Status Note LastModified by Organization Details LastModified Time azithromycin 250 mg tablet TAKE 2 TABLETS BY MOUTH TODAY, THEN TAKE 1 TABLET DAILY FOR 4 DAYS DIRECTED active Not Available Not Available No t Available prednisone 20 mg tablet TAKE 3 TABLETS BY MOUTH DAILY X 3 DAYS, THEN 2 TABLETS X 3 DAYS, THEN 1 TABLET X 4 DAYS active Not Available Not Available No t Available omeprazole 40 mg capsule,micaela yed release TAKE 1 CAPSULE (40 MG TOTAL) BY MOUTH DAILY. active Not Available Not Available No t Available levothyroxin e 25 mcg tablet TAKE 1 TABLET BY MOUTH DAILY active Not Available Not Available Not Available hydrochlorot hiazide 25 mg tablet TAKE 1 TABLET BY MOUTH EVERY DAY IN THE MORNING FOR 14 DAYS active Not Available Not Available No t Available methylpredni solone 4 mg tablets in a dose pack TAKE 6 TABLETS ON DAY 1 DIRECTED ON PACKAGE AND DECREASE BY 1 TAB EACH DAY FOR A TOTAL OF 6 DAYS active Not Available Not Available No t Available escitalopram 20 mg tablet TAKE 1 TABLET BY MOUTH DAILY active Not Available Not Available Not Available Readi-Cat 2 2 % (w/v) oral suspension 2 BOTTLES PER RECOMMENDAT IONS OF RADIOLOGY FOR CT active Not Available Not Available No t Available Vitals None Recorded Social History None recorded. Functional Status None recorded. Mental Status None recorded. Family History Nothing Reported. Medical History No medical history recorded. Gynecological HistoryNo gynecological history recorded. Obstetrics History GPAL:G 0 P 0 0 0 0 Past Encounters Encounter ID Performer Location Encounter Start Date Encounter Closed Date Diagnosis/Indication Diagnosis SNOMED-CT Code Diagnosis ICD10 Code Diagnosis Note [id number] NAA MARX [facility] [address] [address] 08/06/2024 08:51:08 08/06/2024 13:13:54 Sensorineural hearing loss of bilateral ears 852926474 H90.3 Health Concerns Section Related Observation LastModified by Organization Detai ls LastModified Time None Recorded Concern Status LastModified by Organization Details LastModified Time None Recorded Advance Directives Directive None Recorded Payers Encounter Date Sequence Insurance Name Policy Number Policy Linares Covered Member ID Linares Member ID Guarantor Name 08/06/2024 1 [facility] [id number] Vera Hazel [id number] Vera Hazel Notes Date Note Type Note Provider Name and Address Organization Details Recorded Time 08/06/2024 text/html Had her hearing tested at another office. Pt is {{a* an}} {{new* experienced} } user of hearing aids. Here today due to difficulty {{ in everyday life, epecially at work. 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 Has two young boys at home and is very active.#}}Discussed type, technology levels, and manufacturers of hearing aids. Discussed her [employer] benefit of $1700 per ear as a reimbursement. Type of phone: {{iphone* android (galaxy) android (off brand) no smart phone}} Ordering:{{Oticon* phonak Widex}} {{ intent1 in chroma beige#}}Compensation And Benefits Administrator: {{ 2-85#}}Domes: {{ 8 doublebass#}}Other: {{}} Paid today: {{ 0.00#}}Due at fitting {{ 5900#}}Total: {{ 5900#}} ANNE-MARIE BUCKNER, [facility] [address] [facility],[place] [address], [place], [address], [facility] - [facility] 08/06/2024 09:36:21 OBGyn Episode No OBEpisode recorded.
[2024-09-29 14:22] VITALS: BMI 26.8
--- NOTE | 2024-09-29 14:25 | HO.ANESPROP2 ---
Documented by User: Edie Pettit NP 09/29/24 14:26 HPI - Anesthesia Eval Consult details Narrative: 44yo F for Upper Endoscopy and Colonoscopy PMFSH Active Problems Active Problems: All Active Problems Cervical spinal stenosis (Acute) Neck pain, chronic (Acute) Impingement of right shoulder (Acute) Right shoulder pain (Acute) History of gestational diabetes (Acute) Seasonal allergies (Acute) Migraine headache without aura (Acute) GERD (gastroesophageal reflux disease) (Acute) Hypothyroid (Acute) CURT (generalized anxiety disorder) (Acute) Melasma (Acute) Hx of breast cancer (Acute) IBS (irritable bowel syndrome) (Acute) Family hx of colon cancer (Acute) Diarrhea (Acute) Umbilical pain (Acute) Past Medical History Medical History Anxiety Hiatal hernia Headache Thyroid disease Family History Family History Sister Asthma Maternal Grandmother Diabetes Thyroid disorder Mother Thyroid disorder Father Prostate cancer Surgical History Surgical History Hx of hand surgery Hx of section Hx of dilation and curettage H/O colonoscopy History of esophagogastroduodenoscopy (EGD) [place] teeth removed Social History Social History Housing: House Patient Tobacco Use Status: Never used Tobacco e-Cigarette/Vaping Use: Never Used Second Hand Smoke Exposure: No Have you been hit, kicked, punched, or otherwise hurt by someone within the past year? 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 Current occupational exposures/hazards: No Cognitive needs: No Hearing needs: No Vision needs: Yes Meds Allergies Allergy/AdvReac Type Severity Reaction Status Date / Time butorphanol (From Stadol) Allergy Mild Nausea and Verified 09/02/24 07:54 Vomiting animal dander Allergy Unknown SWOLLEN Verified 09/02/24 07:54 EYES morphine (MORPHINE) Allergy Unknown NAUSEA & Verified 09/02/24 07:54 VOMITING, nausea and vomiting lactose (LACTOSE) AdvReac Intermediate DIARRHEA Verified 09/02/24 07:54 Home Medications ?Medication ?Instructions ?Recorded ?Confirmed ?Last Taken ?Type omeprazole 20 mg capsule,delayed 20 mg PO DAILY 10/24/23 09/29/24 10/01/24 07:58 History release Exam Height,Weight and Vital Signs: Height 5 ft 5 in Weight 73.028 kg Assessment and Plan Assessment Anesthesia Assessment: Chart Reviewed Documented by User: Rk Caldwell MD 10/01/24 08:45 PMF Past Medical History Medical History Anxiety Hiatal hernia Headache Thyroid disease Functional capacity: independent ambulation Family History Family History Sister Asthma Maternal Grandmother Diabetes Thyroid disorder Mother Thyroid disorder Father Prostate cancer Family history of problems with anesthesia: No Surgical History Surgical History Hx of hand surgery Hx of section Hx of dilation and curettage H/O colonoscopy History of esophagogastroduodenoscopy (EGD) [place] teeth removed History of Problems with Anesthesia: No Social History Social History Housing: House Patient Tobacco Use Status: Never used Tobacco e-Cigarette/Vaping Use: Never Used Second Hand Smoke Exposure: No Have you been hit, kicked, punched, or otherwise hurt by someone within the past year? 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 Current occupational exposures/hazards: No Cognitive needs: No Hearing needs: No Vision needs: Yes Meds Allergies Allergy/AdvReac Type Severity Reaction Status Date / Time butorphanol (From Stadol) Allergy Mild Nausea and Verified 09/02/24 07:54 Vomiting animal dander Allergy Unknown SWOLLEN Verified 09/02/24 07:54 EYES morphine (MORPHINE) Allergy Unknown NAUSEA & Verified 09/02/24 07:54 VOMITING, nausea and vomiting lactose (LACTOSE) AdvReac Intermediate DIARRHEA Verified 09/02/24 07:54 Home Medications ?Medication ?Instructions ?Recorded ?Confirmed ?Last Taken ?Type omeprazole 20 mg capsule,delayed 20 mg PO DAILY 10/24/23 09/29/24 10/01/24 07:58 History release Exam Exam Date and Time: 10/01/2024 Airway TM Dist: >3cm Neck ROM: Full Heart: rrr Lungs: cta Assessment and Plan Final Anesthetic Review Family History of Problems with Anesthesia: No History of Problems with Anesthesia: No NPO: Yes ASA Class: II Final Preanesthetic Review: No Changes in Pt Med Stat, Meds/Allgs Chart Reviewed, Consent Obtained/Reviewed and Anes Risks/Benef Reviewed Patient Risk: Low Procedure Risk: Low Anesthetic Plan Anesthetic Plan: MAC: Disposition: Standard PACU
[2024-10-01 07:43] VITALS: BP 112/43; PULSE 75; RESP 20; TEMP 36.4; O2SAT 99; BMI 26.6
[2024-10-01 07:59] LABS: UPreg QC Valid YES; Urine Pregnancy NEGATIVE (NEGATIVE)
[2024-10-01] MEDS: Lactated Ringers 1,000 ML 100 ML IVCONT (07:59)
[2024-10-01 10:13] VITALS: BP 87/44; PULSE 69; RESP 16; TEMP 36.2; O2SAT 99
[2024-10-01 10:18] VITALS: BP 92/59
--- NOTE | 2024-10-01 10:19 | P.BOP_ITS ---
Brief Operative Note Date of Service: 10/01/24 Pre-op diagnosis: GERD, Screening Post-op diagnosis: other (Hiatal hernia, Cecal polyp) Procedure: EGD with biopsies, Colonoscopy to the cecum and TI with hot snare polypectomy Surgeon: Alvaro Kim MD Anesthesia: MAC Was an Adjunct Nursing Faculty used for this Procedure?: No Estimated blood loss (mL): 2.0 Pathology: other (A. EG Junction at 35cm B. Cecal polyp) Condition: stable Disposition: PACU
[2024-10-01 10:28] VITALS: BP 102/63; PULSE 66; RESP 16; O2SAT 100
[2024-10-01 10:45] VITALS: TEMP 36.3
--- NOTE | 2024-10-01 10:58 | OP_ITS ---
DATE OF SERVICE: 10/01/2024 SURGEON: Alvaro Kim MD INDICATIONS: The patient presents for evaluation of gastroesophageal reflux, family history of colon cancer, and colorectal cancer screening. Full consent has been obtained from her for both procedures, including risks of bleeding and perforation. PREOPERATIVE DIAGNOSIS: POSTOPERATIVE DIAGNOSIS: PROCEDURE PERFORMED: Esophagogastroduodenoscopy with biopsies, and colonoscopy to the cecum and terminal ileum with hot snare polypectomy. ESTIMATED BLOOD LOSS: COMPLICATIONS: ANESTHESIA: Monitored anesthesia care. ASSISTANTS: SPECIMENS: PREOPERATIVE DIAGNOSES: Gastroesophageal reflux and colorectal cancer screening for family history of colon cancer. POSTOPERATIVE DIAGNOSES: Gastroesophageal reflux and colorectal cancer screening for family history of colon cancer, hiatal hernia, gastric polyps, cecal polyp, internal hemorrhoids. DESCRIPTION OF PROCEDURE: The patient was placed in left lateral decubitus position. The Olympus video gastroscope was passed in the posterior oropharynx and upper esophagus under direct vision. The scope was passed slowly into the distal esophagus. The gastroesophageal junction appeared at 35 cm. There was some minimal irregularity consistent with reflux but no evidence of esophagitis nor any definitive Dumont mucosa. The scope easily entered into the stomach. There was a small hiatal hernia. There were multiple hyperplastic appearing gastric polyps, none of which were biopsied as they had been biopsied in the past. The scope was advanced to pylorus. The duodenum was cannulated to the descending portion. The duodenum including the bulb appeared normal without mass or ulceration. Scope was withdrawn back to the stomach. The gastric antrum and body appeared normal with good peristalsis. The scope was retroflexed visualizing the proximal stomach carefully, which appeared normal, without mass or ulceration, other than the above-mentioned polyps. The scope was straightened and withdrawn back to the esophagus. Biopsies were obtained at the EG junction at 35 cm. Proximal to this, the esophageal mucosa appeared normal. Scope was withdrawn from the patient. She was turned around for colonoscopy. The digital rectal exam revealed no abnormalities. The Olympus video pediatric colonoscope was entered into the rectum and advanced easily to the cecum. Once in the cecum I did identify cecal pouch with appendiceal orifice and a normal-appearing ileocecal valve. The terminal ileum was cannulated and appeared normal. The scope withdrawn back in the colon. The entire cecum was well visualized. In the cecum, adjacent to the appendiceal orifice, was an approximately 1.5 cm flat but raised and lobulated polypoid lesion which appeared to be most likely a serrated polyp. This was removed entirely in piecemeal fashion with a hot snare polypectomy. Multiple pieces were recovered by suction. Post- polypectomy there did not appear to be any residual polyp tissue remaining and there was no sign of any bleeding. The area was irrigated and observed for at least 5 minutes and there was no sign of any post-polypectomy bleeding. The remainder of the cecum appeared normal. The scope was then slowly withdrawn assessing all mucosal surfaces carefully. Preparation was excellent. I did not visualize any other polyps, colitis, nor angiodysplasia. In the rectum, scope was retroflexed visualizing some small internal hemorrhoids, but no other pathology. The rectal mucosa appeared normal. The scope was straightened and withdrawn from the patient. She tolerated both procedures well and was returned to recovery area in stable condition. IMPRESSION: 1. Small hiatal hernia, gastroesophageal reflux. 2. Gastric polyps. 3. Cecal polyp. PLAN: The results of the pathology will be checked. If the cecal polyp is adenomatous and/or serrated, I would recommend a repeat colonoscopy within 1 year for followup. If it happens to be all hyperplastic, then I would recommend a repeat colonoscopy in 5 years for screening given her family history. She will continue her daily omeprazole for the reflux. She was advised not to use any aspirin and NSAIDs for 2 weeks. She will otherwise see me on a p.r.n. basis. This has been discussed with her . MD SVETA Forbes/JENNI / [id number] MTDD
== END 2024-10-01 10:55 | disposition home or self-care (01) ==
PROVIDERS: Nurse Practitioner; PCP Nurse Practitioner Family; Visit Provider Internal Medicine
PROC: (CPT 45385; principal; 2024-10-01 09:00)
DX: Z12.11 Encounter for screening for malignant neoplasm of colon (principal); D12.0 Benign neoplasm of cecum; K64.8 Other hemorrhoids; K44.9 Diaphragmatic hernia without obstruction or gangrene; K31.7 Polyp of stomach and duodenum; K21.9 Gastro-esophageal reflux disease without esophagitis
CPT/HCPCS: 45385; 43239; 81025; 88305; 88313; J2704